=== PATIENT | female | born 1965 | race Caucasian/White ===

== ENCOUNTER 2016-12-17 14:11 | Observation (INO) | payer OTHER ==
[~2016-12-17] VITALS: Ht 160 cm; Wt 54.8 kg
[~2016-12-17 14:11] MED LIST: ALBU1AER9 INH; ALPR1TAB3 PO; ASCO10003 PO; BUPR-79 PO; CYAN100T SL; NRN300 PO; OXYC-164 PO; PRLSR20 PO
[2016-12-17] MEDS ORDERED: NITROGLYCERIN OINT 2% 1GM PACKET EXT STA (14:46)
[2016-12-17] MEDS ORDERED: ACETAMINOPHEN 325 MG TAB PO STA (14:46)
[2016-12-17] MEDS ORDERED: SODIUM CHLORIDE 0.9% 1000ML 500 ML IV STA (14:46)
[2016-12-17 15:02] LABS: MEAN CELL VOLUME 93.8 fL (80-100); MEAN CORPUSCULAR HEMOGLOBIN 32.6 pg (25-34); MEAN CORPUSCULAR HGB CONC 34.8 g/dl (32-36); MEAN PLATELET VOLUME 10.2 fL (7.4-10.4); PLATELET COUNT 235 K/uL (130-400); RED BLOOD COUNT 4.48 M/uL (4.2-5.4); WHITE BLOOD COUNT 10.25 K/uL (4.8-10.8)
--- NOTE | 2016-12-17 15:06 | DIAGNOSTIC IMAGING REPORT ---
CHEST ONE VIEW PORTABLE CLINICAL HISTORY: CHEST PAIN dyspnea COMPARISON STUDY: 02/13/2010 FINDINGS: The bones soft tissues and hemidiaphragms are normal. The cardiomediastinal silhouette is normal. The lungs are clear. The pulmonary vasculature is normal. IMPRESSION: Negative chest. Electronically signed by: Raf Lynch M.D. 12/17/2016 3:05 PM Dictated Date/Time: 12/17/2016 3:04 PM
[2016-12-17 15:13] LABS: PROTHROMBIN TIME (PATIENT) 11.1 SECONDS (9.0-12.0)
[2016-12-17 15:18] LABS: ALT/SGPT 18 U/L (12-78); BLOOD UREA NITROGEN 25 mg/dl (7-18); BUN/CREATININE RATIO 19.5 (10-20); CALCIUM 9.1 mg/dl (8.5-10.1); CARBON DIOXIDE 20 mmol/L (21-32); CHLORIDE 109 mmol/L (98-107); GLUCOSE 99 mg/dl (70-99); POTASSIUM 3.5 mmol/L (3.5-5.1); SODIUM 142 mmol/L (136-145)
[2016-12-17 15:23] LABS: ALB/GLOB RATIO 1.1 (0.9-2); ALKALINE PHOSPHATASE 70 U/L (45-117); AST/SGOT 11 U/L (15-37)
[2016-12-17] MEDS ORDERED: ATOR10TA88 PO (15:24)
--- NOTE | 2016-12-17 15:32 | EMERGENCY ROOM VISIT NOTE ---
History Report prepared by Gay: Jose Mak Under the Supervision of: Dr. Jeremy Cleary M.D. First contact with patient: 14:37 Chief Complaint: CHEST PAIN Stated Complaint: CHEST PAIN, NUMB HANDS/FINGERS,LIPS,FEET Nursing Triage Summary: Pt reports CP and SOB x weeks along with N/T in bilateral hands and lips since this AM. Went to PCP this AM, seen by nurse, told to go to ER. History of Present Illness The patient is a 51 year old female who presents to the Emergency Room with complaints of intermittent chest pain beginning several weeks prior to arrival. She currently rates her discomfort as a 9/10 in severity. The patient associates intermittent shortness of breath, intermittent nausea, intermittent diaphoresis, intermittent dizziness, and numbness and tingling in hands and lips with today's symptoms. The patient states the shortness of breath has been intermittent for weeks. She notes she did not sleep well last night, and experienced dizziness, diaphoresis, and tingling in her hands. The patient states this morning at 0900, she experienced chest pain while walking her dog, worsening tingling in her hands and began to experience tingling in her lips. She notes she went to her doctor's office this morning for an appointment, and the nurse referred the patient to the ED. The patient states her symptoms worsen with exertion. The patient state she had an abnormal stress test in August 2016, but she did not follow up, because she moved from [place] to [place]. She also complains of constant right sided abdominal pain beginning several weeks prior to arrival. The patient describes the pain as a dull sharp pain. She notes she has a history of her bile duct becoming clogged. The patient notes a family history of heart problems and a personal history of hypertension, hyperlipidemia, and questionable diabetes. She states she does not take her cholesterol medication regularly. The patient denies a fever, cough , vomiting, and diarrhea. Source of History: patient Onset: several weeks ERP IMPLEMENTATION CONSULTANT Position: chest Symptom Intensity: 9/10 Timing: intermittent Associated Symptoms: + SOB, + abdominal pain (right sided), + chest pain, + diaphoresis, + nausea, No cough, No diarrhea, No fevers, No vomiting Note: Associated symptoms: intermittent dizziness, numbness and tingling in hands and lips Review of Systems See HPI for pertinent positives & negatives. A total of 10 systems reviewed and were otherwise negative. Past Medical & Surgical Medical Problems: (1) Asthma (2) Chest pain (3) Degenerative disc disease (4) Low back pain (5) Melanoma of foot (6) Osteoarthritis (7) Pericarditis (8) Sciatica Surgical Problems: (1) History of tubal ligation Family History Cancer Diabetes mellitus Heart disease Hypertension Kidney disease Lung disease Seizures Social History Smoking Status: Current Every Day Smoker Alcohol Use: none, other Drug Use: none Occupation Status: unemployed Current/Historical Medications Scheduled Albuterol (Proair Hfa), 2 PUFFS INH QID PRN Atorvastatin (Lipitor), 1 TAB PO QPM Bupropion (Wellbutrin Sr), 300 MG PO QAM Gabapentin (Gabapentin), 300 MG PO BID Oxycodone Hcl (Oxycodone Hcl), 10 MG PO QID Scheduled PRN Alprazolam (Xanax), 1 MG PO BID PRN for Anxiety Omeprazole (Prilosec), 20 MG PO DAILY PRN for ACID REFLUX Allergies Coded Allergies: Aspirin (Verified Allergy, Unknown, pt has ulcers, 09/25/16) Ibuprofen (Verified Allergy, Unknown, pt has ulcers, 09/25/16) Propoxyphene (Verified Allergy, Unknown, 09/25/16) Acetaminophen (Verified Adverse Reaction, Mild, upsets restless leg syndrome, 12/17/16) Physical Exam Vital Signs Date Time Temp Pulse Resp B/P Pulse Ox O2 Delivery O2 Flow Rate FiO2 12/17/16 19:30 81 20 105/66 96 12/17/16 17:46 84 20 107/68 91 Room Air 12/17/16 16:37 72 18 129/78 95 Room Air 12/17/16 15:29 75 12/17/16 14:54 96 Room Air 12/17/16 14:45 84 16 121/97 96 Room Air 12/17/16 14:45 95 Room Air 12/17/16 14:20 36.8 118 20 119/69 96 Room Air Physical Exam GENERAL: Patient is in no acute distress. HEENT: No acute trauma, normocephalic atraumatic, mucous membranes moist, no nasal congestion, no scleral icterus. NECK: No stridor, no adenopathy, no meningismus, trachea is midline. LUNGS: Diminished breath sounds. No wheezing or rhonchi. Breath sounds equal. HEART: Without murmurs gallops or rubs, regular rate and rhythm. ABDOMEN: Soft, nontender, bowel sounds positive, no hernias, no peritonitis. EXTREMITIES: No cyanosis or edema, full range of motion of all the joints without pain or difficulty, no signs for acute trauma. NEUROLOGIC: Oriented x 3, no acute motor or sensory deficits, no focal weakness. SKIN: No rash, no jaundice, no diaphoresis. Medical Decision & Procedures ER Provider Diagnostic Interpretation: X-ray results as stated below per interpretation by me and the radiologist: CHEST ONE VIEW PORTABLE CLINICAL HISTORY: CHEST PAIN dyspnea COMPARISON STUDY: 02/13/2010 FINDINGS: The bones soft tissues and hemidiaphragms are normal. The cardiomediastinal silhouette is normal. The lungs are clear. The pulmonary vasculature is normal. IMPRESSION: Negative chest. Electronically signed by: Raf Lynch M.D. 12/17/2016 3:05 PM Laboratory Results 12/17/16 14:45 12/17/16 14:45 Test 12/17/16 14:45 12/17/16 17:13 Red Blood Count 4.48 M/uL (4.2-5.4) Mean Corpuscular Volume 93.8 fL (80-100) Mean Corpuscular Hemoglobin 32.6 pg (25-34) Mean Corpuscular Hemoglobin Concent 34.8 g/dl (32-36) RDW Standard Deviation 46.2 fL (36.4-46.3) RDW Coefficient of Variation 13.4 % (11.5-14.5) Mean Platelet Volume 10.2 fL (7.4-10.4) Prothrombin Time 11.1 SECONDS (9.0-12.0) Prothromb Time International Ratio 1.0 (0.9-1.1) Activated Partial Thromboplast Time 26.4 SECONDS (21.0-31.0) Partial Thromboplastin Ratio 1.0 Anion Gap 13.0 mmol/L (3-11) Est Creatinine Clear Calc Drug Dose 41.4 ml/min Estimated GFR () 54.2 Estimated GFR (Non- 46.8 BUN/Creatinine Ratio 19.5 (10-20) Calcium Level 9.1 mg/dl (8.5-10.1) Total Bilirubin 0.4 mg/dl (0.2-1) Aspartate Amino Transf (AST/SGOT) 11 U/L (15-37) Alanine Aminotransferase (ALT/SGPT) 18 U/L (12-78) Alkaline Phosphatase 70 U/L (45-117) Total Creatine Kinase 115 U/L (26-192) Creatine Kinase MB 1.1 ng/ml (0.5-3.6) Creatine Kinase MB Ratio 1.0 (0-3.0) Troponin I < 0.015 ng/ml (0-0.045) Total Protein 7.9 gm/dl (6.4-8.2) Albumin 4.1 gm/dl (3.4-5.0) Globulin 3.8 gm/dl (2.5-4.0) Albumin/Globulin Ratio 1.1 (0.9-2) Lipase 131 U/L (73-393) Laboratory results reviewed by me. Medications Administered Medications (Trade) Dose Ordered Sig/Favio Route Start Time Stop Time Status Last Admin Dose Admin Sodium Chloride (Nss 1000ml) 500 ml @ 999 mls/hr Q31M STAT IV 12/17/16 14:46 12/17/16 15:16 DC 12/17/16 15:24 999 MLS/HR Nitroglycerin (Nitroglycerin 2% Oint) 1 inch NOW STAT EXT 12/17/16 14:46 12/17/16 14:49 DC 12/17/16 15:22 1 INCH Acetaminophen (Tylenol Tab) 650 mg NOW STAT PO 12/17/16 14:46 12/17/16 14:49 DC 12/17/16 14:46 650 MG Oxycodone HCl (Roxicodone Immediate Rel Tab) 10 mg QID PO 12/17/16 17:00 01/16/17 16:59 12/17/16 19:29 10 MG ECG Indication: chest pain Rate (beats per minute): 88 Rhythm: normal sinus Findings: ST depression (Inferior and Lateral), no ectopy Comparison ECG Date: 07/30/2010 Change: ST depressions in the inferior and lateral leads are new. ED Course 1444: The patient was evaluated in room B12B. A complete history and physical exam was performed. 1446: Ordered Tylenol Tab 650 mg PO, Nitroglycerin 1 inch EXT, Sodium Chloride 500 ml @ 999 mls/hr IV. 1534: I spoke to CULLEN Last (Hospitalist) about the patient's case, and he will follow the patient for further evaluation. 1537: Reevaluated and updated the patient at this time. Dr. Gambino is in seeing the patient. Medical Decision The differential diagnoses include but are not limited to: angina, AZ, cardiac ischemia, PE, aortic dissection, pneumonia, anemia. There is no leukocytosis or concerning anemia. No significant electrolyte abnormality, kidney failure or hepatitis. There is no pancreatitis. There is no coagulopathy. Chest x-ray shows no mediastinal widening, pneumonia or pneumothorax. EKG shows a normal sinus rhythm, there are some subtle ST depressions in the inferior and lateral leads. No evidence for acute AZ. Her cardiac enzyme testing times one is not consistent with acute cardiac injury. The patient was given nitro paste, IV saline. She was given oral Tylenol. No aspirin was given as she claims an allergy. The patient presents with chest discomfort, shortness of breath. She has multiple cardiac risk factors and reports a recent abnormal stress test. She has an abnormal EKG. Admission/observation is warranted. I spoke with her and case management. The on-call hospitalist was consulted. Consults Time Called: 153 Consulting Physician: CULLEN Last (Hospitalist) Returned Call: 1534 I spoke to CULLEN Last (Hospitalist) about the patient's case, and he will follow the patient for further evaluation. Impression Primary Impression: Precordial chest pain Additional Impression: Acute electrocardiogram changes Scribe Attestation The scribe's documentation has been prepared under my direction and personally reviewed by me in its entirety. I confirm that the note above accurately reflects all work, treatment, procedures, and medical decision making performed by me. Departure Information Dispostion Being Evaluated By Hospitalist (CULLEN Last (Hospitalist) ) Referrals Cory Porras M.D. (PCP) Problem Qualifiers
[2016-12-17] MEDS ORDERED: POLYETHYLENE (MIRALAX) 17 GM PACK PO PRN (16:45)
[2016-12-17] MEDS ORDERED: ALUMINUM/MAGNESIUM/SIMETH (MAALOX MAX) 30 ML UDC PO PRN (16:45)
[2016-12-17] MEDS ORDERED: ALPRAZOLAM 0.5 MG TAB PO PRN (16:45)
[2016-12-17] MEDS ORDERED: ONDANSETRON INJ 2 MG/ML 2 ML VIAL IV PRN (16:45)
[2016-12-17] MEDS ORDERED: MAGNESIUM HYDROXIDE SUSP 30 ML UDC PO PRN (16:45)
[2016-12-17] MEDS ORDERED: ALBUTEROL HFA 8 GM INHALER INH PRN (16:45)
[2016-12-17] MEDS ORDERED: NITROGLYCERIN 0.4 MG SL PER TAB CHARGE SL PRN (16:45)
[2016-12-17] MEDS ORDERED: IV FLUIDS COMPLETED PRN (17:15)
--- NOTE | 2016-12-17 18:05 | DIAGNOSTIC IMAGING REPORT ---
ABDOMINAL ULTRASOUND, RIGHT UPPER QUADRANT HISTORY: Right upper quadrant abdominal pain. COMPARISON: Right upper quadrant ultrasound April 19, [address] of the abdomen July 28, 2010. FINDINGS: Liver morphology is normal. No hepatic lesions are identified. Pancreas is sonographically normal. No gallstones are identified within the gallbladder. Gallbladder wall thickness is at the upper limits of normal. Borderline dilatation of the common bile duct is noted. There is no right hydronephrosis. IMPRESSION: 1. No gallstones. 2. Borderline dilatation of the common bile duct. This is likely within normal limits but could be correlated with liver function tests. Electronically signed by: Clif Triana M.D. 12/17/2016 6:03 PM Dictated Date/Time: 12/17/2016 6:01 PM
--- NOTE | 2016-12-17 18:42 | History and Physical ---
History & Physical Date & Time of Service: Dec 17, 2016 at 18:39 Chief Complaint: Chest Pain, Numb Hands/Fingers,Lips,Feet Primary Care Physician: Cory Porras M.D. History of Present Illness Source: patient, family Ms. Alvarez is a 51 y/o female with PMHx of PUD, Asthma, Pericarditis, Low Back Pain if L Leg Radiculopathy, and Chronic Cervicalgia who presents to the ED c/o intermittent CP, SOB, nausea, diaphoresis, dizziness, and numbness and tingling of hands and lips x weeks. She also complains of intermittent RUQ pain with some radiation to the RLQ that has seemed to become more constant. She states the chest pain starts in the epigastric region and has a sharp sensation that radiates up the sternum and into the neck and jaw. She rates this discomfort as a 9/10 when it occurs. Aggravated with exertion but cannot recall alleviated factors. Cannot say if pain is exacerbated with eating. She reports that she did have an abnormal stress test in August 2016 in [place] but other than that cannot give any more details. She did not follow-up with that due to moving here to [place] after that. She does report poor sleep over the course of a few days and notes numbness and tingling of her hands and lips. She states that these symptoms seemed to have worsened this AM. She has chronic cervicalgia and has failed nerve ablation in the past. Does have She also complains of this ongoing RUQ pain that seems unconnected to the chest pain per patient. She says she has had peptic ulcers in the past and had a scope to confirm but this was many years ago. She does take Omeprazole daily and TUMS intermittently when needed. She does note BRBPR intermittently but denies melena. Patient also reports that she has been recently seen at her PCP that revealed elevated LFTs and had a hepatitis panel performed. She was told she is hepatitis B positive. Review of records reveals only a reactive Hep B Core Total Ab test. She believes this was due to infidelity of an ex- that prompted testing. She also reports having a "clogged bile duct" in the past. She is an every day smoker but denies ETOH or IVDU. She denies fever/chills, vomiting, dysuria, diarrhea. Past Medical/Surgical History Medical Problems: (1) Degenerative disc disease Status: Chronic (2) Low back pain Status: Chronic (3) Pericarditis Status: Resolved (4) Sciatica Status: Chronic Family History Cancer Diabetes mellitus Heart disease Hypertension Kidney disease Lung disease Seizures Social History Smoking Status: Current Every Day Smoker Smokeless Tobacco Use: No Alcohol Use: none Drug Use: none Housing status: lives with family Occupational Status: unemployed Immunizations History of Influenza Vaccine: No History of Tetanus Vaccine?: No History of Pneumococcal: Unknown History of Hepatitis B Vaccine: No Multi-Drug Resistant Organisms History of MDRO: No Allergies Coded Allergies: Aspirin (Verified Allergy, Unknown, pt has ulcers, 09/25/16) Ibuprofen (Verified Allergy, Unknown, pt has ulcers, 09/25/16) Propoxyphene (Verified Allergy, Unknown, 09/25/16) Acetaminophen (Verified Adverse Reaction, Mild, upsets restless leg syndrome, 12/17/16) Home Medications Scheduled Albuterol (Proair Hfa), 2 PUFFS INH QID PRN Atorvastatin (Lipitor), 1 TAB PO QPM Bupropion (Wellbutrin Sr), 300 MG PO QAM Gabapentin (Gabapentin), 300 MG PO BID Oxycodone Hcl (Oxycodone Hcl), 10 MG PO QID Scheduled PRN Alprazolam (Xanax), 1 MG PO BID PRN for Anxiety Omeprazole (Prilosec), 20 MG PO DAILY PRN for ACID REFLUX Review of Systems Constitutional: No chills, No fever Eyes: No worsening of vision ENT: No nasal symptoms, No sore throat, No trouble swallowing Respiratory: No cough, No shortness of breath Cardiovascular: + chest pain Abdomen: + GI bleeding (BRBPR intermittent), + pain (RUQ extending to RLQ) Musculoskeletal: No calf pain, No swelling Genitourinary - Female: No dysuria Neurologic: + numbness/tingling (chronic lumbar pain with LLE radiculopathy), + weakness (LLE (chronic)) Hematologic / Lymphatic: No abnormal bleeding/bruising, No clotting problems Integumentary: No rash Physical Exam Vital Signs Date Time Temp Pulse Resp B/P Pulse Ox O2 Delivery O2 Flow Rate FiO2 12/17/16 17:46 84 20 107/68 91 Room Air 12/17/16 16:37 72 18 129/78 95 Room Air 12/17/16 15:29 75 12/17/16 14:54 96 Room Air 12/17/16 14:45 84 16 121/97 96 Room Air 12/17/16 14:45 95 Room Air 12/17/16 14:20 36.8 118 20 119/69 96 Room Air General Appearance: WD/WN, no apparent distress, + thin Head: normocephalic, atraumatic Eyes: PERRL, sclerae normal ENT: hearing grossly normal Neck: supple, thyroid normal, no JVD, trachea midline Respiratory/Chest: lungs clear, normal breath sounds, no respiratory distress, no accessory muscle use Cardiovascular: regular rate, rhythm, no gallop, no murmur Abdomen/GI: normal bowel sounds, soft, + tenderness (RUQ; Bravo's sign negative) Back: normal inspection, no CVA tenderness Extremities/Musculoskelatal: no calf tenderness, no pedal edema Neurologic/Psych: alert, oriented x 3 Skin: normal color, warm/dry Diagnostics Laboratory Results Results Past 24 Hours Test 12/17/16 14:45 12/17/16 17:13 Range/Units White Blood Count 10.25 4.8-10.8 K/uL Red Blood Count 4.48 4.2-5.4 M/uL Hemoglobin 14.6 12.0-16.0 g/dL Hematocrit 42.0 37-47 % Mean Corpuscular Volume 93.8 80-100 fL Mean Corpuscular Hemoglobin 32.6 25-34 pg Mean Corpuscular Hemoglobin Concent 34.8 32-36 g/dl RDW Standard Deviation 46.2 36.4-46.3 fL RDW Coefficient of Variation 13.4 11.5-14.5 % Platelet Count 235 130-400 K/uL Mean Platelet Volume 10.2 7.4-10.4 fL Prothrombin Time 11.1 9.0-12.0 SECONDS Prothromb Time International Ratio 1.0 0.9-1.1 Activated Partial Thromboplast Time 26.4 21.0-31.0 SECONDS Partial Thromboplastin Ratio 1.0 Sodium Level 142 136-145 mmol/L Potassium Level 3.5 3.5-5.1 mmol/L Chloride Level 109 98-107 mmol/L Carbon Dioxide Level 20 21-32 mmol/L Anion Gap 13.0 3-11 mmol/L Blood Urea Nitrogen 25 7-18 mg/dl Creatinine 1.30 0.60-1.20 mg/dl Est Creatinine Clear Calc Drug Dose 41.4 ml/min Estimated GFR () 54.2 Estimated GFR (Non- 46.8 BUN/Creatinine Ratio 19.5 10-20 Random Glucose 99 70-99 mg/dl Calcium Level 9.1 8.5-10.1 mg/dl Total Bilirubin 0.4 0.2-1 mg/dl Aspartate Amino Transf (AST/SGOT) 11 15-37 U/L Alanine Aminotransferase (ALT/SGPT) 18 12-78 U/L Alkaline Phosphatase 70 45-117 U/L Total Creatine Kinase 115 26-192 U/L Creatine Kinase MB 1.1 0.5-3.6 ng/ml Creatine Kinase MB Ratio 1.0 0-3.0 Troponin I < 0.015 0-0.045 ng/ml Total Protein 7.9 6.4-8.2 gm/dl Albumin 4.1 3.4-5.0 gm/dl Globulin 3.8 2.5-4.0 gm/dl Albumin/Globulin Ratio 1.1 0.9-2 Lipase 131 73-393 U/L Diagnostic Radiology CHEST ONE VIEW PORTABLE CLINICAL HISTORY: CHEST PAIN dyspnea COMPARISON STUDY: 02/13/2010 FINDINGS: The bones soft tissues and hemidiaphragms are normal. The cardiomediastinal silhouette is normal. The lungs are clear. The pulmonary vasculature is normal. IMPRESSION: Negative chest. ABDOMINAL ULTRASOUND, RIGHT UPPER QUADRANT HISTORY: Right upper quadrant abdominal pain. COMPARISON: Right upper quadrant ultrasound April 19, [address] of the abdomen July 28, 2010. FINDINGS: Liver morphology is normal. No hepatic lesions are identified. Pancreas is sonographically normal. No gallstones are identified within the gallbladder. Gallbladder wall thickness is at the upper limits of normal. Borderline dilatation of the common bile duct is noted. There is no right hydronephrosis. IMPRESSION: 1. No gallstones. 2. Borderline dilatation of the common bile duct. This is likely within normal limits but could be correlated with liver function tests. EKG Normal sinus rhythm Right atrial enlargement Nonspecific ST abnormality Abnormal ECG When compared with ECG of 30-JUL-2010 07:21, Nonspecific T wave abnormality no longer evident in Anterior leads Confirmed by QUINTON LANGSTON ([id number]) on 12/17/2016 4:31:48 PM Impression Assessment and Plan Ms. Alvarez is a 51 y/o female with PMHx of PUD, Asthma, Pericarditis, Low Back Pain if L Leg Radiculopathy, and Chronic Cervicalgia who presents to the ED c/o intermittent CP, SOB, nausea, diaphoresis, dizziness, and numbness and tingling of hands and lips x weeks. Patient has presented with numerous chief complaints that have been occurring for a long duration of time. She will be admitted for CP R/O with significant risk factors and EKG findings with mild ST depressions noted in inferolateral leads. She does have PCP follow-up and discussed with patient these ongoing chronic conditions will be best managed by her PCP and getting appropriate referrals. She would benefit from a possible GI referral. Chest Pain: R/O Cardiac Cause vs GI Component - EKG with NSR with mild non-specific ST depressions in II, III, aVF and less significant in V5-V6 - Serial cardiac enzymes - Stress Test - Nitro 0.4 mg SL PRN RUQ Abdominal Pain: Duodenal Ulcer vs Gallbladder Disease vs Liver Disease - RUQ U/S - report reviewed - evidence of dilated bile duct but no abnormality of liver or acute cholecystitis noted - Protonix 40 mg daily as Omeprazole interchange - May need outpatient GI evaluation Acute Kidney Injury: Cr Baseline < 1 - NSS at 100 mL/hr Asthma: - Continue Ventolin PRN Anxiety/Depression: - Wellbutrin 300 mg daily and Xanax 1 mg BID PRN Low Back Pain with LLE Radiculopathy: - Gabapentin 300 mg BID - Oxycodone 10 mg QID DVT Prophylaxis: - TEDs/SCDs Code Status: - FULL RESUSCITATION Disposition: - May benefit from outpatient referral to GI Level of Care Telemetry Resuscitation Status FULL RESUSCITATION VTE Prophylaxis VTE Risk Assessment Done? Y/N: Yes Risk Level: Moderate Given or contraindicated: T.E.D. Stockings, SCD's Assessment and Plan Attending Addendum: I have physically seen and examined this patient, have directed their medical care, have supervised the PA's activity, and agree with the H&P as noted above, with the following changes: NONE. The patient is awake, well-developed and adequately nourished, alert and oriented 3, normocephalic and atraumatic, lying in bed and in no acute distress. HEENT--PERRL, EOMI, mucous membranes and oropharynx moist. Neck--supple, no JVD or bruits, thyroid normal, trachea midline, no adenopathy. Heart--normal S1 and S2, no extra beats, no murmurs, rubs or gallops. Lungs--scattered wheezes bilaterally, no respiratory distress, no accessory muscle use. Abdomen--normal bowel sounds and soft, mildly tender right upper quadrant and epigastric pain, no hernias or masses, no organomegaly. Extremities--no cyanosis, clubbing or edema. There are good distal pulses b/l. Dermatologic--normal skin turgor, normal color, warm and dry, no abnormal lymph nodes, no rash. Neurologic--cranial nerves II through XII grossly intact, motor and sensory examination normal. Psychiatric--normal affect. Assessment and plan: Precordial chest pain with inferolateral changes on EKG and normal initial cardiac enzymes--admit to the telemetry unit for serial cardiac enzymes, cardiac rhythm monitoring and a 2-D echocardiogram with Dopplers. GI--history of hepatitis B core antibody positivity, but negative B surface antigen. We'll order hepatitis B envelope antigen and hepatitis B viral load testing she did have a transient elevation in AST on labs in October, however, labs normal to this time. Reportedly had an ultrasound showing a dilated bile duct. If symptoms persist, options include HIDA scan with gallbladder ejection fraction and/or MRCP. Mild acute renal insufficiency--1.30 point admission, will hydrate with normal saline at 100 ML's per hour, and repeat BMP in the a.m. Anxiety/depression--continue current dosing of Wellbutrin XL 3 mg by mouth daily and Xanax 1 mg by mouth twice a day when necessary. Chronic low back pain with left lower extremity radiculopathy--can continue gabapentin 3 mg by mouth twice a day and oxycodone 10 mg by mouth 4 times a day. COPD/chronic tobacco use disorder --we will have Ventolin available to use when necessary. Discussed with her necessity quit smoking.
[2016-12-17] MEDS: OXYCODONE HCL IR 5 MG TAB (IMMEDIATE RELEASE) PO SCH ×2 (19:29→22:01)
[2016-12-17 20:17] VITALS: BP 105/71; PULSE 84; TEMP 36.6; O2SAT 98; Ht 160 cm; Wt 54.8 kg
[2016-12-17] MEDS: GABAPENTIN 300 MG CAP PO SCH (21:54)
[2016-12-17] MEDS: SODIUM CHLORIDE 0.9% 1000ML 1,000 ML IV SCH (21:55)
[2016-12-17 22:00] LABS: CKMB/CK RATIO 1.3 (0-3.0)
[2016-12-17 23:59] VITALS: O2SAT 98
[2016-12-18 00:21] VITALS: BP 117/77; PULSE 77; TEMP 36.7; O2SAT 94
[2016-12-18] MEDS: SODIUM CHLORIDE 0.9% 1000ML 1,000 ML IV SCH ×2 (02:46→15:27)
[2016-12-18 03:24] LABS: HEMATOCRIT 34.5 % (37-47); MEAN CELL VOLUME 92.7 fL (80-100); MEAN CORPUSCULAR HEMOGLOBIN 31.7 pg (25-34); MEAN CORPUSCULAR HGB CONC 34.2 g/dl (32-36); MEAN PLATELET VOLUME 9.9 fL (7.4-10.4); PLATELET COUNT 182 K/uL (130-400); RED BLOOD COUNT 3.72 M/uL (4.2-5.4); WHITE BLOOD COUNT 9.29 K/uL (4.8-10.8)
[2016-12-18 03:50] VITALS: BP 100/60; PULSE 82; TEMP 36.7; O2SAT 97
[2016-12-18 04:04] LABS: BLOOD UREA NITROGEN 29 mg/dl (7-18); BUN/CREATININE RATIO 30.7 (10-20); CARBON DIOXIDE 25 mmol/L (21-32); CHLORIDE 110 mmol/L (98-107); CHOLESTEROL 143 mg/dl (0-200); CKMB/CK RATIO 1.8 (0-3.0); CREATININE 0.95 mg/dl (0.60-1.20); GLUCOSE 104 mg/dl (70-99); HDL CHOLESTEROL 48 mg/dl; LDL CHOLESTEROL CALCULATED 69 mg/dl; MAGNESIUM 2.1 mg/dl (1.8-2.4); POTASSIUM 3.7 mmol/L (3.5-5.1); SODIUM 144 mmol/L (136-145); TRIGLYCERIDES 131 mg/dl (0-150); VERY LOW DENSITY LIPOPROT CALC 26 mg/dl
[2016-12-18 06:27] LABS: ESTIMATED AVERAGE GLUCOSE 108 mg/dl; HA1C FLAG Normal (Normal)
[2016-12-18 07:28] VITALS: BP 103/63; PULSE 84; TEMP 36.8; O2SAT 100
[2016-12-18] MEDS: GABAPENTIN 300 MG CAP PO SCH (07:41)
[2016-12-18] MEDS: OXYCODONE HCL IR 5 MG TAB (IMMEDIATE RELEASE) PO SCH ×2 (08:01→12:58)
[2016-12-18] MEDS ORDERED: PANTOprazole SOD 40 MG TAB PO SCH (09:00)
[2016-12-18] MEDS ORDERED: BuPROPion SR 150 MG TABCR PO SCH (09:00)
[2016-12-18] MEDS ORDERED: INFLUENZA ADMINISTRATION CHARGE ONE (09:00)
[2016-12-18] MEDS ORDERED: INFLUENZA VIRUS QUAD VACCINE 0.5 ML SYR IM. ONE (09:00)
[2016-12-18] MEDS ORDERED: DOBUTamine HCL 12.5 MG/ML 20 ML VIAL ONE (11:30)
[2016-12-18] MEDS ORDERED: ATROPINE SULFATE 0.1 MG/ML 5ML SYR ONE (11:30)
[2016-12-18] MEDS ORDERED: METOPROLOL TARTRATE 1 MG/ML VIAL ONE (11:30)
--- NOTE | 2016-12-18 12:04 | Progress Note ---
Subjective Date of Service: Dec 18, 2016. Subjective Pt evaluation today including: conversation w/ patient, physical exam, chart review, lab review, review of studies, review of inpatient medication list just came back from stress test. no chest pain, no sob at this time. she does report ruq abd pain, chronically. no further midsternal chest pain, but does have occasional sharp right-sided pain. she had left fingers tingling during stress test but no periorbital tingling. she reports she has cervical radiofrequency done a few years back in [place] that needs to be re-done and she says is probably contributing to her paresthesias. otherwise, smoking cessation was discussed. Problem List Medical Problems: (1) Acute electrocardiogram changes Status: Acute (2) Chronic back pain Status: Acute (3) Precordial chest pain Status: Acute Review of Systems All Other Systems: Reviewed and Negative Medications Medications (Trade) Dose Ordered Sig/Favio Route Start Time Stop Time Status Last Admin Dose Admin Sodium Chloride (Nss 1000ml) 500 ml @ 999 mls/hr Q31M STAT IV 12/17/16 14:46 12/17/16 15:16 DC 12/17/16 15:24 999 MLS/HR Nitroglycerin (Nitroglycerin 2% Oint) 1 inch NOW STAT EXT 12/17/16 14:46 12/17/16 14:49 DC 12/17/16 15:22 1 INCH Acetaminophen 650 mg 650 mg NOW STAT PO 12/17/16 14:46 12/17/16 14:49 DC 12/17/16 14:46 650 MG Sodium Chloride (Nss 1000ml) 1,000 ml @ 100 mls/hr Q10H IV 12/17/16 16:45 01/16/17 16:44 12/18/16 02:46 100 MLS/HR Alprazolam (Xanax Tab) 1 mg BID PRN PO 12/17/16 16:45 01/16/17 16:44 12/17/16 23:09 1 MG Bupropion HCl (Wellbutrin-Sr Tab) 300 mg QAM PO 12/18/16 09:00 01/17/17 08:59 12/18/16 07:42 300 MG Gabapentin (Neurontin Cap) 300 mg BID PO 12/17/16 21:00 01/16/17 20:59 12/17/16 21:54 300 MG Oxycodone HCl (Roxicodone Immediate Rel Tab) 10 mg QID PO 12/17/16 17:00 01/16/17 16:59 12/18/16 08:01 10 MG Pantoprazole Sodium (Protonix Tab) 40 mg QAM PO 12/18/16 09:00 01/17/17 08:59 12/18/16 07:42 40 MG Objective Vital Signs Date Time Temp Pulse Resp B/P Pulse Ox O2 Delivery O2 Flow Rate FiO2 12/18/16 08:00 Room Air 12/18/16 07:28 36.8 84 18 103/63 100 Room Air 12/18/16 04:00 Room Air 12/18/16 03:50 36.7 82 16 100/60 97 Room Air 12/18/16 00:21 36.7 77 17 117/77 94 Room Air 12/17/16 23:59 98 Room Air 12/17/16 20:17 36.6 84 18 105/71 98 Room Air 12/17/16 19:30 81 20 105/66 96 12/17/16 17:46 84 20 107/68 91 Room Air 12/17/16 16:37 72 18 129/78 95 Room Air 12/17/16 15:29 75 12/17/16 14:54 96 Room Air 12/17/16 14:45 84 16 121/97 96 Room Air 12/17/16 14:45 95 Room Air 12/17/16 14:20 36.8 118 20 119/69 96 Room Air Physical Exam Comments: nad, aox3, coherent and fluent speech eomi, perrl, anicteric s1 s2 rrr, no m/r/g ctab no w/r/r abd soft, nt/nd +BS no organomegaly no LE edema no neuro deficits with intact cn 2-12 Laboratory Results Last 24 Hours Test 12/17/16 14:45 12/17/16 17:13 12/17/16 21:25 12/18/16 03:05 White Blood Count 10.25 K/uL 9.29 K/uL Red Blood Count 4.48 M/uL 3.72 M/uL Hemoglobin 14.6 g/dL 11.8 g/dL Hematocrit 42.0 % 34.5 % Mean Corpuscular Volume 93.8 fL 92.7 fL Mean Corpuscular Hemoglobin 32.6 pg 31.7 pg Mean Corpuscular Hemoglobin Concent 34.8 g/dl 34.2 g/dl RDW Standard Deviation 46.2 fL 46.1 fL RDW Coefficient of Variation 13.4 % 13.6 % Platelet Count 235 K/uL 182 K/uL Mean Platelet Volume 10.2 fL 9.9 fL Prothrombin Time 11.1 SECONDS Prothromb Time International Ratio 1.0 Activated Partial Thromboplast Time 26.4 SECONDS Partial Thromboplastin Ratio 1.0 Sodium Level 142 mmol/L 144 mmol/L Potassium Level 3.5 mmol/L 3.7 mmol/L Chloride Level 109 mmol/L 110 mmol/L Carbon Dioxide Level 20 mmol/L 25 mmol/L Anion Gap 13.0 mmol/L 9.0 mmol/L Blood Urea Nitrogen 25 mg/dl 29 mg/dl Creatinine 1.30 mg/dl 0.95 mg/dl Est Creatinine Clear Calc Drug Dose 41.4 ml/min 56.6 ml/min Estimated GFR () 54.2 79.3 Estimated GFR (Non- 46.8 68.4 BUN/Creatinine Ratio 19.5 30.7 Random Glucose 99 mg/dl 104 mg/dl Calcium Level 9.1 mg/dl 8.0 mg/dl Total Bilirubin 0.4 mg/dl Aspartate Amino Transf (AST/SGOT) 11 U/L Alanine Aminotransferase (ALT/SGPT) 18 U/L Alkaline Phosphatase 70 U/L Total Creatine Kinase 115 U/L 100 U/L 84 U/L Creatine Kinase MB 1.1 ng/ml 1.3 ng/ml 1.5 ng/ml Creatine Kinase MB Ratio 1.0 1.3 1.8 Troponin I < 0.015 ng/ml < 0.015 ng/ml < 0.015 ng/ml Total Protein 7.9 gm/dl Albumin 4.1 gm/dl Globulin 3.8 gm/dl Albumin/Globulin Ratio 1.1 Lipase 131 U/L Erythrocyte Sedimentation Rate 7 mm/hr Estimated Average Glucose 108 mg/dl Hemoglobin A1c 5.4 % Magnesium Level 2.1 mg/dl Triglycerides Level 131 mg/dl Cholesterol Level 143 mg/dl HDL Cholesterol 48 mg/dl LDL Cholesterol, Calculated 69 mg/dl VLDL Cholesterol, Calculated 26 mg/dl Cholesterol/HDL Ratio 3.0 Assessment and Plan 1. chest pain - atypical - stress test still pending - if negative, will discharge with follow-up to PCP 2. RUQ pain, chronic - RUQ US unremarkable - unclear etiology 3. LE radiculopathy, cervical radiculopathy - cont gabapentin
--- NOTE | 2016-12-18 12:45 | Discharge Instructions ---
Discharge Instructions Admission Reason for Admission: Chest Pain Discharge Discharge Diagnosis / Problem: chest pain, ruq pain Discharge Goals Goal(s): Decrease discomfort Activity Recommendations Activity Limitations: resume your previous activity . Current Hospital Diet Patient's current hospital diet: AHA Diet (Heart Healthy) Discharge Diet Recommended Diet: Regular Diet Pending Studies Studies pending at discharge: no Laboratory Results Hemoglobin A1c Test 12/18/16 03:05 Range/Units Estimated Average Glucose 108 mg/dl Hemoglobin A1c 5.4 4.5-5.6 % Lipid Panel Test 12/18/16 03:05 Range/Units Triglycerides Level 131 0-150 mg/dl Cholesterol Level 143 0-200 mg/dl HDL Cholesterol 48 mg/dl Cholesterol/HDL Ratio 3.0 LDL Cholesterol, Calculated 69 mg/dl Medical Emergencies . Who to Call and When: Medical Emergencies: If at any time you feel your situation is an emergency, please call 911 immediately. . Non-Emergent Contact Non-Emergency issues call your: Primary Care Provider . . "Provider Documentation" section prepared by Mine Hernández. VTE Core Measure Inpt VTE Proph given/why not?: T.E.D. Stockings, SCD's, Treatment not indicated
[2016-12-18 15:18] VITALS: BP 119/83; PULSE 66; TEMP 36.7; O2SAT 99
--- NOTE | 2016-12-18 16:00 | DOBUTAMINE ECHO ---
*NOTICE TO RECEIVING CONSTITUTION PARTY AGENCY This information is strictly Confidential and protected under [place] law. [place] law prohibits you from making any further disclosure of this information unless further disclosure is expressly permitted by the written consent of the person to whom it pertains or is authorized by law. A general authorization for the release of medical or other information is not sufficient for this purpose. Hospital accepts no responsibility if the information is made available to any other person, INCLUDING THE PATIENT. Interpretation Summary * Name: TOO DELEON Study Date: 12/18/2016 10:43 AM BP: 105/74 mmHg * Patient Location: [facility] HR: 68 * : 1965 (M/d/yyyy) Gender: Female Height: 63 in * Age: 51 yrs Ethnicity: [place] Weight: 120 lb * Ordering Physician: Therese Velásquez * Referring Physician: VEENA * Performed By: Richa Harrington RDCS * * Reason For Study: CHEST PAIN * BSA: 1.6 m2 * History: CHEST PAIN * Resting echocardiogram with normal biventricular systolic function, normal chamber dimensions, and no significant valvular abnormalities. * STRESS STUDY: Normal pharmacologic stress echocardiogram. No echocardiographic or ECG evidence of myocardial ischemia having achieved heart rate adequate for diagnostic purposes. Procedure Details * DOBUTAMINE ECHO, CPT#40501 Left Ventricle * The left ventricle is normal in size. * There is normal left ventricular wall thickness. * Ejection Fraction = 60-65%. * Resting wall motion: Normal. Stress wall motion: Appropriate increase in Left ventricular systolic function and decrease in cavity size. No stress induced segmental wall motion abnormalities. * The left ventricular ejection fraction increases normally with stress. The left ventricular end-systolic cavity size reduces post-stress (normal response). The left ventricular wall motion with stress is normal. * No regional wall motion abnormalities noted. Right Ventricle * The right ventricle is normal in size and function. Atria * The left atrial size is normal. * Right atrial size is normal. Mitral Valve * The mitral valve is normal. * There is no mitral valve stenosis. * There is no mitral regurgitation noted. Tricuspid Valve * The tricuspid valve is normal. * There is no tricuspid stenosis. * There is trace tricuspid regurgitation. * Right ventricular systolic pressure is normal. Aortic Valve * The aortic valve is trileaflet. * The aortic valve opens well. * Aortic stenosis is absent. * No aortic regurgitation is present. Pulmonic Valve * The pulmonary valve is not well seen, but the Doppler examination is normal without significant regurgitation or stenosis. * There is no pulmonic valvular regurgitation. Great Vessels * The aortic root is normal size. Pericardium * There is no pericardial effusion. Stress Parameters * Normal baseline electrocardiogram. * The stress ECG response was normal * Rest heart rate was '68' BPM. * Rest blood pressure was '105/74' * Maximum heart rate achieved was 146 bpm. * Maximum heart rate was 87 % of maximum age-predicted heart rate. * Maximum blood pressure was '180/103' * Maximum Dobutamine infusion rate was '40' mcg/kg/min. * A total of .5 mg of intravenous Atropine was used to supplement Dobutamine for heart rate response. * Dobutamine infusion was terminated due to achieving target heart rate * A total of 5 mg of IV Metoprolol was administered to reverse Dobutamine-induced tachycardia. MMode 2D Measurements and Calculations IVSd 0.64 cm IVSs 1.2 cm LVIDd 4.7 cm LVIDs 3.2 cm LVPWd 0.87 cm LVPWs 1.5 cm IVS/LVPW 0.74 FS 31.2 % EDV(Teich) 102.4 ml ESV(Teich) 42.1 ml EF(Teich) 58.9 % EDV(cubed) 103.8 ml ESV(cubed) 33.9 ml EF(cubed) 67.4 % % IVS thick 80.0 % % LVPW thick 66.8 % LV mass(C)d 113.6 grams LV mass(C)dI 73.0 grams/m\S\2 LV mass(C)s 138.2 grams LV mass(C)sI 88.8 grams/m\S\2 SV(Teich) 60.3 ml SI(Teich) 38.7 ml/m\S\2 SV(cubed) 69.9 ml SI(cubed) 44.9 ml/m\S\2 Ao root diam 2.7 cm Ao root area 5.9 cm\S\2 LA dimension 2.8 cm LA/Ao 1.0 LVAd ap4 23.5 cm\S\2 LVLd ap4 7.0 cm EDV(MOD-sp4) 66.7 ml EDV(sp4-el) 67.0 ml LVAs ap4 13.0 cm\S\2 LVLs ap4 5.7 cm ESV(MOD-sp4) 26.3 ml ESV(sp4-el) 25.0 ml EF(MOD-sp4) 60.5 % EF(sp4-el) 62.7 % SV(MOD-sp4) 40.4 ml SI(MOD-sp4) 25.9 ml/m\S\2 SV(sp4-el) 42.0 ml SI(sp4-el) 27.0 ml/m\S\2 Doppler Measurements and Calculations MV E max ignacio 68.9 cm/sec MV A max ignacio 58.2 cm/sec MV E/A 1.2 MV dec time 0.23 sec Ao V2 max 129.0 cm/sec Ao max PG 6.7 mmHg Ao max PG (full) 3.3 mmHg LV V1 max PG 3.4 mmHg LV V1 max 91.7 cm/sec TR max ignacio 203.8 cm/sec
--- NOTE | 2016-12-18 18:23 | Discharge Summary ---
Discharge Summary Admission Date: Dec 17, 2016 at 16:50 Discharge Date: Dec 18, 2016 Discharge Disposition: Home (left AMA) Principal Diagnosis: atypical chest pain Immunizations: Have You Had Influenza Vaccine: No History of Tetanus Vaccine?: No History of Pneumococcal: Unknown History of Hepatitis B Vaccine: No Procedures: Interpretation Summary * Name: TOO DELEON Study Date: 12/18/2016 10:43 AM BP: 105/74 mmHg * Patient Location: [facility] HR: 68 * : 1965 (M/d/yyyy) Gender: Female Height: 63 in * Age: 51 yrs Ethnicity: [place] Weight: 120 lb * Ordering Physician: Therese Velásquez * Referring Physician: VEENA * Performed By: Richa Harrington RDCS * * Reason For Study: CHEST PAIN * BSA: 1.6 m2 * History: CHEST PAIN * Resting echocardiogram with normal biventricular systolic function, normal chamber dimensions, and no significant valvular abnormalities. * STRESS STUDY: Normal pharmacologic stress echocardiogram. No echocardiographic or ECG evidence of myocardial ischemia having achieved heart rate adequate for diagnostic purposes. Procedure Details * DOBUTAMINE ECHO, CPT#54792 Left Ventricle * The left ventricle is normal in size. * There is normal left ventricular wall thickness. * Ejection Fraction = 60-65%. * Resting wall motion: Normal. Stress wall motion: Appropriate increase in Left ventricular systolic function and decrease in cavity size. No stress induced segmental wall motion abnormalities. * The left ventricular ejection fraction increases normally with stress. The left ventricular end-systolic cavity size reduces post-stress (normal response). The left ventricular wall motion with stress is normal. * No regional wall motion abnormalities noted. Right Ventricle * The right ventricle is normal in size and function. Atria * The left atrial size is normal. * Right atrial size is normal. Mitral Valve * The mitral valve is normal. * There is no mitral valve stenosis. * There is no mitral regurgitation noted. Tricuspid Valve * The tricuspid valve is normal. * There is no tricuspid stenosis. * There is trace tricuspid regurgitation. * Right ventricular systolic pressure is normal. Aortic Valve * The aortic valve is trileaflet. * The aortic valve opens well. * Aortic stenosis is absent. * No aortic regurgitation is present. Pulmonic Valve * The pulmonary valve is not well seen, but the Doppler examination is normal without significant regurgitation or stenosis. * There is no pulmonic valvular regurgitation. Great Vessels * The aortic root is normal size. Pericardium * There is no pericardial effusion. Stress Parameters * Normal baseline electrocardiogram. * The stress ECG response was normal * Rest heart rate was '68' BPM. * Rest blood pressure was '105/74' * Maximum heart rate achieved was 146 bpm. * Maximum heart rate was 87 % of maximum age-predicted heart rate. * Maximum blood pressure was '180/103' * Maximum Dobutamine infusion rate was '40' mcg/kg/min. * A total of .5 mg of intravenous Atropine was used to supplement Dobutamine for heart rate response. * Dobutamine infusion was terminated due to achieving target heart rate * A total of 5 mg of IV Metoprolol was administered to reverse Dobutamine- induced tachycardia. MMode 2D Measurements and Calculations IVSd 0.64 cm IVSs 1.2 cm LVIDd 4.7 cm LVIDs 3.2 cm LVPWd 0.87 cm LVPWs 1.5 cm IVS/LVPW 0.74 FS 31.2 % EDV(Teich) 102.4 ml ESV(Teich) 42.1 ml EF(Teich) 58.9 % EDV(cubed) 103.8 ml ESV(cubed) 33.9 ml EF(cubed) 67.4 % % IVS thick 80.0 % % LVPW thick 66.8 % LV mass(C)d 113.6 grams LV mass(C)dI 73.0 grams/m\\S\\2 LV mass(C)s 138.2 grams LV mass(C)sI 88.8 grams/m\\S\\2 SV(Teich) 60.3 ml SI(Teich) 38.7 ml/m\\S\\2 SV(cubed) 69.9 ml SI(cubed) 44.9 ml/m\\S\\2 Ao root diam 2.7 cm Ao root area 5.9 cm\\S\\2 LA dimension 2.8 cm LA/Ao 1.0 LVAd ap4 23.5 cm\\S\\2 LVLd ap4 7.0 cm EDV(MOD-sp4) 66.7 ml EDV(sp4-el) 67.0 ml LVAs ap4 13.0 cm\\S\\2 LVLs ap4 5.7 cm ESV(MOD-sp4) 26.3 ml ESV(sp4-el) 25.0 ml EF(MOD-sp4) 60.5 % EF(sp4-el) 62.7 % SV(MOD-sp4) 40.4 ml SI(MOD-sp4) 25.9 ml/m\\S\\2 SV(sp4-el) 42.0 ml SI(sp4-el) 27.0 ml/m\\S\\2 Doppler Measurements and Calculations MV E max ignacio 68.9 cm/sec MV A max ignacio 58.2 cm/sec MV E/A 1.2 MV dec time 0.23 sec Ao V2 max 129.0 cm/sec Ao max PG 6.7 mmHg Ao max PG (full) 3.3 mmHg LV V1 max PG 3.4 mmHg LV V1 max 91.7 cm/sec TR max ignacio 203.8 cm/sec Hospital Course Ms. Deleon is a 51 y/o female with PMHx of PUD, Asthma, Pericarditis, Low Back Pain if L Leg Radiculopathy, and Chronic Cervicalgia who presents to the ED c/o intermittent CP, SOB, nausea, diaphoresis, dizziness, and numbness and tingling of hands and lips x weeks. She also complains of intermittent RUQ pain with some radiation to the RLQ that has seemed to become more constant. She states the chest pain starts in the epigastric region and has a sharp sensation that radiates up the sternum and into the neck and jaw. She rates this discomfort as a 9/10 when it occurs. Aggravated with exertion but cannot recall alleviated factors. Cannot say if pain is exacerbated with eating. She reports that she did have an abnormal stress test in August 2016 in [place] but other than that cannot give any more details. She did not follow-up with that due to moving here to [place] after that. She does report poor sleep over the course of a few days and notes numbness and tingling of her hands and lips. She states that these symptoms seemed to have worsened this AM. She has chronic cervicalgia and has failed nerve ablation in the past. Does have She also complains of this ongoing RUQ pain that seems unconnected to the chest pain per patient. She says she has had peptic ulcers in the past and had a scope to confirm but this was many years ago. She does take Omeprazole daily and TUMS intermittently when needed. She does note BRBPR intermittently but denies melena. Patient also reports that she has been recently seen at her PCP that revealed elevated LFTs and had a hepatitis panel performed. She was told she is hepatitis B positive. Review of records reveals only a reactive Hep B Core Total Ab test. She believes this was due to infidelity of an ex- that prompted testing. She also reports having a "clogged bile duct" in the past. She is an every day smoker but denies ETOH or IVDU. She denies fever/chills, vomiting, dysuria, diarrhea. Cardiac enzymes were negative. She had a stress test as above, non-ischemic. Stress test had not resulted yet when patient left AMA. 1. chest pain - atypical - stress test still pending - if negative, will discharge with follow-up to PCP 2. RUQ pain, chronic - RUQ US unremarkable - unclear etiology 3. LE radiculopathy, cervical radiculopathy - cont gabapentin This includes examination of the patient, discharge planning, medication reconciliation, and communication with other providers. Discharge Instructions Please refer to the electronic Patient Visit Report (Discharge Instructions) for additional information. Additional Copies To Cory Porras M.D.
[2016-12-20 18:40] LABS: HEP B QUANT <20 IU/mL (<20); HEP B QUANT LOG IU/ML <1.30 Log IU/mL (<1.30)
== END 2016-12-18 16:01 | disposition left against medical advice (07) ==
LOC: ENRESERVTM → ENRESERVDT → C.EDB 14:13 → C.2T 16:50
PROVIDERS: ADMIT Hospitalist; ATTEND Internal Medicine
DX: R07.89 Other chest pain (principal); R10.11 Right upper quadrant pain; N17.9 Acute kidney failure, unspecified; J44.9 Chronic obstructive pulmonary disease, unspecified; M54.5 Low back pain; M54.12 Radiculopathy, cervical region; F17.200 Nicotine dependence, unspecified, uncomplicated; F32.9 Major depressive disorder, single episode, unspecified; Z83.3 Family history of diabetes mellitus; Z82.49 Family history of ischemic heart disease and other diseases of the circulatory system; Z84.1 Family history of disorders of kidney and ureter

== ENCOUNTER 2017-03-03 17:49 | Emergency (ER) | payer OTHER ==
[~2017-03-03] VITALS: Ht 160 cm; Wt 57.0 kg
[~2017-03-03 17:49] MED LIST changes: -ASCO10003 PO; +ATOR10TA82 PO; -CYAN100T SL
[2017-03-03 18:24] VITALS: TEMP 36.7; Ht 160 cm; Wt 57.0 kg
[2017-03-03] MEDS ORDERED: MoRPHine SULFATE 10 MG/ML CARP/VIAL IM STA (18:49)
[2017-03-03] MEDS ORDERED: DEXAMETHASONE SOD INJ 10 MG/ML VIAL IM ONE (19:00)
[2017-03-03] MEDS ORDERED: ALBU18002 INH (19:00)
[2017-03-03] MEDS ORDERED: ONDANSETRON 4MG OD TAB PO ONE (19:00)
--- NOTE | 2017-03-03 20:18 | DIAGNOSTIC IMAGING REPORT ---
CT SCAN OF THE LUMBAR SPINE WITHOUT IV CONTRAST CLINICAL HISTORY: Chronic low back pain. Left lumbar radiculopathy. COMPARISON STUDY: Radiographs of the lumbar spine dated 09/15/2016. Abdominal CT dated 07/28/2010. TECHNIQUE: CT scan of the lumbar spine is performed from the lower thoracic spine to the sacrum. Images are reviewed in the axial, sagittal, and coronal planes. IV contrast was not administered for this examination. CT DOSE: 594.45 mGy.cm FINDINGS: The skeletal structures are well mineralized. There is no evidence of fracture or malalignment. Vertebral body height is maintained throughout the lumbar spine. There is minimal anterolisthesis at L4-L5. Alignment is otherwise preserved. No lytic or blastic lesions are seen. The transverse and spinous processes are intact. There is no evidence of spondylolysis. Mild facet arthropathy is seen in the lower lumbar region. There is mild degenerative disc space narrowing at L4-L5. The disc spaces are otherwise maintained. There is no evidence of large disc herniation. A posterior disc bulge at L4-L5 likely contributes to mild acquired compromise of the central canal. This causes bilateral subarticular stenosis, and likely impinges on the exiting bilateral L4 nerve roots. No significant neural foraminal stenosis is suggested throughout the lumbar spine. A small posterior disc bulge is also seen at L3-L4 and L5-S1. The visualized sacrum and bony pelvis appear intact. The paraspinous soft tissues are within normal limits. Atherosclerotic calcification is noted in the abdominal aorta. There is mild central intrahepatic biliary ductal dilatation. This was also seen in 2009. No retroperitoneal lymphadenopathy is seen. IMPRESSION: 1. No acute bony abnormality is seen involving the lumbosacral spine. 2. There is a posterior disc bulge at L4-L5. This likely contributes to acquired compromise of the central canal and impinges on the exiting bilateral L4 nerve roots. Dictated: 03/03/2017 7:33 PM Transcribed: 03/03/2017 8:18 PM [email or web address]_Evin Electronically signed by: Jeremy Varela M.D. 03/03/2017 8:19 PM Dictated Date/Time: 03/03/2017 7:33 PM
[2017-03-03] MEDS ORDERED: HYDROmorphone INJ 1 MG/ML SYR IM STA (20:22)
[2017-03-03] MEDS ORDERED: METH4PAK PO (20:26)
[2017-03-03 21:07] VITALS: BP 130/79; PULSE 68; O2SAT 95
--- NOTE | 2017-03-03 22:48 | EMERGENCY ROOM VISIT NOTE ---
History First contact with patient: 18:29 Chief Complaint: BACK PAIN Stated Complaint: LOW BACK PAIN, SCIATIC NERVE PAIN DOWN TO FOOT History of Present Illness The patient is a 51 year old female who presents to the Emergency Room with complaints of lower back pain radiating down the left leg to the foot. The patient reports that she has had this new discomfort for the past 2 weeks. She reports that her dog tripped her while the patient was walking the dog with a leash. She does not know how long before this happened. The patient reports that she was cooking on [place] when she felt a sharp pain in the left lower back region. The patient does have a history of chronic lower back pain. She is currently under the management of Dr. Porras who has been providing prescription oxycodone 10 mg. The patient is currently awaiting a referral to the [facility] for further pain management. The patient currently denies any bladder or bowel incontinence, saddle anesthesias, left upper extremity weakness or foot drop. She reports that the oxycodone has not helped with the pain, and currently rates her discomfort a 10 out of 10. Review of Systems 10 system review was performed and was negative except for pertinent positives and negatives as indicated in history of present illness Past Medical/Surgical History Medical Problems: (1) Asthma (2) Chest pain (3) Degenerative disc disease (4) Low back pain (5) Melanoma of foot (6) Osteoarthritis (7) Pericarditis (8) Sciatica Surgical Problems: (1) Cervical nerve radiofrequency ablation (2) History of tubal ligation Family History Cancer Diabetes mellitus Heart disease Hypertension Kidney disease Lung disease Seizures Social History Smoking Status: Current Every Day Smoker Alcohol Use: none, other Drug Use: none Marital Status: single Housing Status: lives with family, lives with friends Occupation Status: unemployed Current/Historical Medications Scheduled Atorvastatin (Lipitor), 1 TAB PO QPM Bupropion (Wellbutrin Sr), 300 MG PO QAM Gabapentin (Gabapentin), 300 MG PO HS Methylprednisolone (Medrol Dosepak), 0 PO DAILY Oxycodone Hcl (Oxycodone Hcl), 10 MG PO QID Scheduled PRN Albuterol Sulfate (Proair Respiclick), 2 PUFFS INH QID PRN for Shortness of Breath Alprazolam (Xanax), 1 MG PO BID PRN for Anxiety Omeprazole (Prilosec), 20 MG PO DAILY PRN for ACID REFLUX Allergies Coded Allergies: Aspirin (Verified Allergy, Unknown, pt has ulcers, 03/03/17) Ibuprofen (Verified Allergy, Unknown, pt has ulcers, 03/03/17) Propoxyphene (Verified Allergy, Unknown, 03/03/17) Acetaminophen (Verified Adverse Reaction, Mild, upsets restless leg syndrome, 03/03/17) Physical Exam Vital Signs Date Time Temp Pulse Resp B/P Pulse Ox O2 Delivery O2 Flow Rate FiO2 03/03/17 21:07 68 16 130/79 95 Room Air 03/03/17 19:40 63 16 105/67 98 Room Air 03/03/17 18:24 36.7 68 16 123/77 98 Room Air Physical Exam CONSTITUTIONAL: Healthy and well nourished. Alert and oriented X 3 with positive affect. Patient does not appear in any acute distress during the interview. HEENT: Normocephalic, atraumatic. Pupils equal, round and reactive. NECK: Full active range of motion without discomfort. RESPIRATORY: Clear to auscultation bilaterally with no wheezing, crackles, rhonchi or stridor. CARDIOVASCULAR: Regular rate and rhythm with no murmurs, rubs or gallops. GASTROINTESTINAL: Bowel sounds present in all quadrants. Soft and nontender to palpation. MUSCULOSKELETAL: Examination shows tenderness to palpation through the left lower lumbar paraspinous muscle and SI joints. Negative logroll. Negative sitting straight leg raise. Pedal pulses are intact. No popliteal masses. Ankle plantar/dorsiflexion strength is 5 out of 5 and symmetric bilaterally. INTEGUMENTARY: No rash or other significant dermatologic conditions noted. NEUROLOGIC: No focal neurologic deficits noted. Lower extremity deep tendon reflexes are 2+ and symmetric bilaterally. Medical Decision & Procedures ER Provider Diagnostic Interpretation: Noncontrast CT of the lumbar spine shows the following: CT SCAN OF THE LUMBAR SPINE WITHOUT IV CONTRAST CLINICAL HISTORY: Chronic low back pain. Left lumbar radiculopathy. COMPARISON STUDY: Radiographs of the lumbar spine dated 09/15/2016. Abdominal CT dated 07/28/2010. TECHNIQUE: CT scan of the lumbar spine is performed from the lower thoracic spine to the sacrum. Images are reviewed in the axial, sagittal, and coronal planes. IV contrast was not administered for this examination. CT DOSE: 594.45 mGy.cm FINDINGS: The skeletal structures are well mineralized. There is no evidence of fracture or malalignment. Vertebral body height is maintained throughout the lumbar spine. There is minimal anterolisthesis at L4-L5. Alignment is otherwise preserved. No lytic or blastic lesions are seen. The transverse and spinous processes are intact. There is no evidence of spondylolysis. Mild facet arthropathy is seen in the lower lumbar region. There is mild degenerative disc space narrowing at L4-L5. The disc spaces are otherwise maintained. There is no evidence of large disc herniation. A posterior disc bulge at L4-L5 likely contributes to mild acquired compromise of the central canal. This causes bilateral subarticular stenosis, and likely impinges on the exiting bilateral L4 nerve roots. No significant neural foraminal stenosis is suggested throughout the lumbar spine. A small posterior disc bulge is also seen at L3-L4 and L5-S1. The visualized sacrum and bony pelvis appear intact. The paraspinous soft tissues are within normal limits. Atherosclerotic calcification is noted in the abdominal aorta. There is mild central intrahepatic biliary ductal dilatation. This was also seen in 2010. No retroperitoneal lymphadenopathy is seen. IMPRESSION: 1. No acute bony abnormality is seen involving the lumbosacral spine. 2. There is a posterior disc bulge at L4-L5. This likely contributes to acquired compromise of the central canal and impinges on the exiting bilateral L4 nerve roots. Medications Administered Medications (Trade) Dose Ordered Sig/Favio Route Start Time Stop Time Status Last Admin Dose Admin Morphine Sulfate (MoRPHine SULFATE INJ) 10 mg NOW STAT IM 03/03/17 18:49 03/03/17 18:52 DC 03/03/17 18:56 10 MG Ondansetron HCl (Zofran Odt) 4 mg ONE ONCE PO 03/03/17 19:00 03/03/17 19:01 DC 03/03/17 18:56 4 MG Dexamethasone Sodium Phosphate (Decadron Inj) 10 mg NOW ONCE IM 03/03/17 19:00 03/03/17 19:01 DC 03/03/17 18:55 10 MG Hydromorphone HCl (Dilaudid Inj) 1 mg ONE STAT IM 03/03/17 20:22 03/03/17 20:23 DC 03/03/17 20:59 1 MG ED Course Patient history and physical exam were performed. Nurse's notes were reviewed. Vital signs were reviewed and were normal. Review of the [place] Prescription Drug Monitoring Program shows that the patient does receive monthly prescriptions for oxycodone 10 mg. Her last prescription filled was on 02/13/17. The patient reports that her medication is not helping. Because the patient did have a traumatic fall, I did suggest performing a CT scan of the lumbar spine. The patient was in agreement. The patient was administered morphine 10 mg and Decadron [address] showed no acute findings or evidence of significant stenosis. I did discuss CT results with the patient. She was encouraged to continue follow-up with her PCP and pain management. The patient reports that her PCP will not be back in the office until later this month. She also does not have an appointment with the [facility] until 03/17. The patient was advised that I would not alter her treatment plan because she is on on a pain management with her PCP, and likely has a pain contract. She was encouraged to contact the office to discuss this with another provider. She and requested additional medication before leaving, and was administered Dilaudid 1 mg IM. She was provided a prescription for a Medrol Dosepak. She rated her discomfort a 6 out of 10 at the time of discharge. [facility] Drug Monitoring Program Search Results: patient reviewed within database, see additional documentation Impression Primary Impression: Back pain with left-sided sciatica Departure Information Prescriptions Methylprednisolone (MEDROL DOSEPAK) 4 Mg Noel 0 PO DAILY, #1 PKT Prov: Durga Guillen PA 03/03/17 Referrals Cory Porras M.D. (PCP) Patient Instructions My [facility]
== END 2017-03-03 21:07 | disposition home or self-care (01) ==
LOC: C.EDB 17:50 → C.EDD 21:07
DX: M54.32 Sciatica, left side (principal); J45.909 Unspecified asthma, uncomplicated; M19.90 Unspecified osteoarthritis, unspecified site; Z85.820 Personal history of malignant melanoma of skin; I31.9 Disease of pericardium, unspecified; F17.200 Nicotine dependence, unspecified, uncomplicated; Z98.51 Tubal ligation status; Z79.899 Other long term (current) drug therapy; Z88.6 Allergy status to analgesic agent; Z88.8 Allergy status to other drugs, medicaments and biological substances; Z80.9 Family history of malignant neoplasm, unspecified; Z83.3 Family history of diabetes mellitus; Z82.49 Family history of ischemic heart disease and other diseases of the circulatory system; Z84.1 Family history of disorders of kidney and ureter; Z82.0 Family history of epilepsy and other diseases of the nervous system

== ENCOUNTER 2017-05-03 12:08 | Emergency (ER) | payer OTHER ==
[~2017-05-03] VITALS: Ht 160 cm; Wt 53.1 kg
[~2017-05-03 12:08] MED LIST changes: +ALBU18002 INH; -ALBU1AER9 INH; -ATOR10TA82 PO; +ATOR10TA88 PO
[2017-05-03 12:13] VITALS: Ht 160 cm; Wt 53.1 kg
[2017-05-03] MEDS ORDERED: hydrOXYzine HCL IM SOLN 50 MG/ML 1 ML VIAL IM STA (13:00)
[2017-05-03] MEDS ORDERED: MORP30TA PO (14:06)
--- NOTE | 2017-05-03 15:07 | DIAGNOSTIC IMAGING REPORT ---
L-SPINE MIN 4 VIEWS ROUTINE CLINICAL HISTORY: Back pain. Evaluate for fracture. COMPARISON: Lumbar spine radiographs September 15, [address] March 03, 2017. FINDINGS: Grade I anterolisthesis of L4 and L5 is similar to prior exam, likely related to facet arthrosis. There is no acute fracture within the lumbar spine. Mild leftward curvature of the lumbar spine is unchanged. No suspicious lesion is present. There is mild disc space narrowing at several levels. There is moderate multilevel facet arthrosis. IMPRESSION: 1. No acute lumbar spine fracture. 2. Grade I anterolisthesis of L4 and L5 which is unchanged since exam and likely due to facet arthrosis. 3. Mild multilevel disc space narrowing and moderate multilevel facet arthrosis. Electronically signed by: Clif Triana M.D. 05/03/2017 3:06 PM Dictated Date/Time: 05/03/2017 3:04 PM
[2017-05-03] MEDS ORDERED: HYDR25CA PO (15:30)
[2017-05-03 15:36] VITALS: BP 120/84; PULSE 80; TEMP 36.8; O2SAT 97
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
== END 2017-05-03 15:39 | disposition home or self-care (01) ==
LOC: C.EDB 12:08 → C.EDC 15:39
DX: M54.42 Lumbago with sciatica, left side (principal); R07.9 Chest pain, unspecified; G89.29 Other chronic pain; F41.9 Anxiety disorder, unspecified; M19.90 Unspecified osteoarthritis, unspecified site; M51.36 Other intervertebral disc degeneration, lumbar region; F32.9 Major depressive disorder, single episode, unspecified; J45.909 Unspecified asthma, uncomplicated; Z85.820 Personal history of malignant melanoma of skin; Z98.51 Tubal ligation status; Z80.9 Family history of malignant neoplasm, unspecified; Z83.3 Family history of diabetes mellitus; Z82.49 Family history of ischemic heart disease and other diseases of the circulatory system; Z84.1 Family history of disorders of kidney and ureter; Z82.0 Family history of epilepsy and other diseases of the nervous system; F17.210 Nicotine dependence, cigarettes, uncomplicated; Z79.899 Other long term (current) drug therapy

== ENCOUNTER → 2017-05-21 | Outpatient (CLI) | payer OTHER ==
[~2017-05-21] MED LIST changes: -ATOR10TA88 PO; +HYDR25CA PO; +MORP30TA PO
--- NOTE | 2017-05-21 11:26 | DIAGNOSTIC IMAGING REPORT ---
LUMBAR SPINE W/O CONTRAST CLINICAL HISTORY: 52 years-old Female presenting with CHRONIC PAIN. TECHNIQUE: Multisequence, multiplanar MR imaging of the lumbar spine was performed without use of intravenous contrast. IV contrast: None. COMPARISON: Correlation made to CT from 03/03/2017. FINDINGS: Localizer images: Unremarkable. Normal lumbar lordosis. Vertebral bodies maintain normal height. Mild bony edema along the anterior aspect of the endplates of the L1-2 intervertebral joint. Mild degrees of disc desiccation noted at L1-2, L4-5, and L5-S1. No intervertebral disc height loss. 3 to 4 mm of grade 1 anterolisthesis of L4 on L5, degenerative in etiology. Mild multilevel degenerative changes detailed below. T12-L1: Normal. L1-2: Anterior osteophytosis with mild disc bulge that does not significantly efface the ventral thecal sac. No significant neural foraminal narrowing. L2-3: Normal. L3-4: Mild facet hypertrophy without significant neural foraminal narrowing. No spinal canal stenosis. L4-5: Anterolisthesis in combination with a mild disc bulge, facet hypertrophy, and ligamentum flavum thickening causes crowding of the cauda equina with incomplete effacement of CSF. No convincing evidence of impingement of the cauda equina. Mass effect on the transiting L5 nerve roots may be present. Mild bilateral neural foraminal narrowing. L5-S1: Mild disc bulge without significant spinal canal or neural foraminal narrowing. The spinal cord ends in good position at the inferior endplate of T12. Normal morphology of the cauda equina. Paraspinal soft tissues within normal limits. IMPRESSION: 1. Multilevel degenerative changes worst at L4-5, where anterolisthesis, disc bulge, facet hypertrophy, and ligamentum flavum result in crowding of the cauda equina without impingement. Mild bilateral neural foraminal narrowing at L4-5. Additional degenerative change as above. Electronically signed by: Hunter Ansari M.D. 05/21/2017 11:25 AM Dictated Date/Time: 05/21/2017 11:13 AM
== END | disposition home or self-care (01) ==
LOC: C.MRI 05-14 15:52
PROVIDERS: ATTEND Nurse Practitioner Adult Health
DX: G89.4 Chronic pain syndrome (principal); M51.06 Intervertebral disc disorders with myelopathy, lumbar region; M50.00 Cervical disc disorder with myelopathy, unspecified cervical region; M79.7 Fibromyalgia; C43.9 Malignant melanoma of skin, unspecified; J44.9 Chronic obstructive pulmonary disease, unspecified; M16.0 Bilateral primary osteoarthritis of hip; M54.42 Lumbago with sciatica, left side; M79.605 Pain in left leg; R42 Dizziness and giddiness

== ENCOUNTER 2017-06-01 16:28 | Emergency (ER) | payer OTHER ==
[~2017-06-01] VITALS: Ht 162.6 cm; Wt 54.3 kg
[2017-06-01 16:30] VITALS: TEMP 36.7; Ht 162.6 cm; Wt 54.3 kg
--- NOTE | 2017-06-01 18:53 | DIAGNOSTIC IMAGING REPORT ---
LEFT VENOUS DOPPLER UPR EXT UNI HISTORY: Venous Doppler left arm Left arm edema, erythema and palpable lump in bicep COMPARISON STUDY: None. FINDINGS: The internal jugular vein is patent. There is normal flow within the subclavian vein. There is normal flow and compressibility within the left axillary, basilic, brachial, radial, ulnar, and visualized cephalic veins. The images are mislabeled as right. IMPRESSION: No DVT within the upper extremity. The above report was generated using voice recognition software. It may contain grammatical, syntax or spelling errors. Electronically signed by: Raf Lynch M.D. 06/01/2017 6:52 PM Dictated Date/Time: 06/01/2017 6:50 PM
--- NOTE | 2017-06-01 19:43 | EMERGENCY ROOM VISIT NOTE ---
History First contact with patient: 16:35 Chief Complaint: ARM PAIN Stated Complaint: LEFT UPPER ARM PAIN/LUMP, PAIN INTO HAND History of Present Illness The patient is a 52 year old female who presents to the Emergency Room via private vehicle with complaints of "left upper arm pain/lump, pain into hand". The patient states that yesterday, she was walking her dog, and notes that her left forearm felt strange, on the lateral aspect as if there was a bruise. She states that it was felt as if she was stung by a bee. She notes that this pain has now progressed proximally and distally. She also felt a lump overlying the left anterior bicep. She also felt like there was a weight on her chest last night. She notes minimal shortness of breath. She denies any new shortness of breath. She denies any chest pain at this time. She denies any fevers or chills. Review of Systems A complete 6-point Review of Systems was discussed with the patient, with pertinent positives and negatives listed in the History of Present Illness. All remaining Review of Systems questions can be considered negative unless otherwise specified. Past Medical/Surgical History Medical Problems: (1) Asthma (2) Chest pain (3) Degenerative disc disease (4) Low back pain (5) Melanoma of foot (6) Osteoarthritis (7) Pericarditis (8) Sciatica Surgical Problems: (1) Cervical nerve radiofrequency ablation (2) History of tubal ligation Family History Cancer Diabetes mellitus Heart disease Hypertension Kidney disease Lung disease Seizures Social History Smoking Status: Current Every Day Smoker Alcohol Use: none, other Drug Use: none Marital Status: single Housing Status: lives with family, lives with friends Occupation Status: unemployed Current/Historical Medications Scheduled Bupropion (Wellbutrin Sr), 300 MG PO QAM Gabapentin (Gabapentin), 300 MG PO HS Morphine Sulfate Ir (Morphine Sulfate Ir), 60 MG PO BID Omeprazole (Prilosec), 20 MG PO DAILY Oxycodone Hcl (Oxycodone Hcl), 10 MG PO QID Scheduled PRN Albuterol Sulfate (Proair Respiclick), 2 PUFFS INH QID PRN for Shortness of Breath Physical Exam Vital Signs Date Time Temp Pulse Resp B/P (MAP) Pulse Ox O2 Delivery O2 Flow Rate FiO2 06/01/17 20:06 78 16 112/70 98 06/01/17 17:55 78 16 112/70 98 Room Air 06/01/17 16:30 36.7 83 18 117/74 98 Room Air Physical Exam VITAL SIGNS - Vital signs and nursing notes were reviewed. Afebrile, normotensive, non-tachycardic and is saturating well on room air 98%. GENERAL -52-year-old female appearing her stated age who is in no acute distress. Communicates well with provider and answers questions appropriately. SKIN - Without rashes. Skin overlying left arm reveals a faint erythematous hue , no true rash noted. HEAD - NC/AT. EXTREMITIES - No clubbing or peripheral cyanosis. No pretibial edema present. She is neurovascularly intact left upper extremity. Full range of motion noted. There is slight tenderness to palpation overlying the anterior bicep, overlying a small area that is nodular in nature. +5/5 strength noted in UE/LE bilaterally. Medical Decision & Procedures ER Provider Diagnostic Interpretation: LEFT VENOUS DOPPLER UPR EXT UNI HISTORY: Venous Doppler left arm Left arm edema, erythema and palpable lump in bicep COMPARISON STUDY: None. FINDINGS: The internal jugular vein is patent. There is normal flow within the subclavian vein. There is normal flow and compressibility within the left axillary, basilic, brachial, radial, ulnar, and visualized cephalic veins. The images are mislabeled as right. IMPRESSION: No DVT within the upper extremity. The above report was generated using voice recognition software. It may contain grammatical, syntax or spelling errors. Electronically signed by: Raf Lynch M.D. 06/01/2017 6:52 PM Dictated Date/Time: 06/01/2017 6:50 PM Medical Decision Patient was seen and evaluated as above. After obtaining a thorough history and physical examination, patient was offered a full cardiac workup secondary to her chest pain yesterday. She states that she is concerned that her father is at home, and at this time would just like to pursue with the ultrasound. I believe this is reasonable. Ultrasound was obtained. No DVT. Patient was offered again a full workup, and notes only EKG. EKG was performed, reveals normal sinus rhythm, rate of 71 beats per minute, without ectopy or ischemic change. This time she appears stable for discharge. She respectfully declined more workup. She is to follow-up with her family doctor regarding her visit here today. I suspect she is likely experiencing slight nerve irritation in the right upper arm or potentially a pulled muscle. I do not suspect any emergent process. No evidence of infection. She was educated upon worrisome symptoms which to return, had coarse procedure, and was discharged home in good condition. In evaluation treatment this patient following differential diagnoses were entertained: NM, PE, DVT, SVT, nodule, strained muscle, neuropraxia, among others. Impression Primary Impression: Arm pain, left Departure Information Dispostion Home / Self-Care Condition GOOD Referrals Juanpablo Thompson M.D. (MEDICAL) (PCP) Patient Instructions My [facility] Additional Instructions You were seen in the emergency department for left arm discomfort. Ultrasound reveals no blood clot. EKG is normal. Please follow-up with your family doctor in today's visit. Please return to emergency department with any new/concerning symptoms.
[2017-06-01 20:06] VITALS: BP 112/70; PULSE 78; O2SAT 98
== END 2017-06-01 20:08 | disposition home or self-care (01) ==
LOC: C.EDB 16:30 → C.EDD 20:08
DX: M79.622 Pain in left upper arm (principal); J45.909 Unspecified asthma, uncomplicated; M19.90 Unspecified osteoarthritis, unspecified site; I31.9 Disease of pericardium, unspecified; Z83.3 Family history of diabetes mellitus; Z82.49 Family history of ischemic heart disease and other diseases of the circulatory system; Z82.0 Family history of epilepsy and other diseases of the nervous system; F17.200 Nicotine dependence, unspecified, uncomplicated

== ENCOUNTER 2017-11-30 16:11 | Emergency (ER) | payer OTHER ==
[~2017-11-30] VITALS: Ht 160 cm; Wt 55.0 kg
[~2017-11-30 16:11] MED LIST changes: -ALBU18002 INH; -ALPR1TAB3 PO; -HYDR25CA PO; -PRLSR20 PO
[2017-11-30 16:40] VITALS: BP 119/71; TEMP 36.8; Ht 160 cm; Wt 55.0 kg
[2017-11-30] MEDS ORDERED: PRLSR20 PO (16:47)
--- NOTE | 2017-11-30 17:59 | DIAGNOSTIC IMAGING REPORT ---
LUMBAR SPINE 5 VIEWS HISTORY: Fall. Left low back pain COMPARISON: Lumbar spine 05/03/2017. FINDINGS: There is no fracture. Mild levoscoliosis, unchanged. The sacrum is intact. Mild facet degenerative changes within the lower lumbar spine. Mild disc space are at L4-L5 and T11-T12. Grade I anterolisthesis of L4 and L5, unchanged. Disc spaces are preserved. IMPRESSION: No fractures within the lumbar spine. Mild degenerative changes as described above. Electronically signed by: Daniel Lopez M.D. 11/30/2017 5:58 PM Dictated Date/Time: 11/30/2017 5:56 PM
[2017-11-30] MEDS ORDERED: CYCL10TA6 PO (18:26)
[2017-11-30 18:32] VITALS: PULSE 98; O2SAT 99
[2017-11-30] MEDS ORDERED: ALBU18002 INH (19:00)
--- NOTE | 2017-12-01 00:42 | EMERGENCY ROOM VISIT NOTE ---
History First contact with patient: 16:44 Chief Complaint: BACK PAIN Stated Complaint: LOWER BACK ACROSS,DOWN L LEG PAIN History of Present Illness The patient is a 52 year old female who presents to the Emergency Room with complaints of low back pain with radiation of pain down her left leg that is slowly worsening over the past 7 or 8 days. The patient states that she had a fall outside about a week ago, and has had progressively worsening pain since then. She has a history of fibromyalgia and chronic back pain. She states that she has taken gabapentin and Aleve without relief of symptoms. The patient has not had fever or chills. No difficulty using the bathroom. She rates her discomfort a 10/10. Certain movements exacerbate her discomfort. Review of Systems More than 10 systems were reviewed and otherwise negative with the exception of history of present illness. Past Medical/Surgical History Medical Problems: (1) Asthma (2) Chest pain (3) Degenerative disc disease (4) Low back pain (5) Melanoma of foot (6) Osteoarthritis (7) Pericarditis (8) Sciatica Surgical Problems: (1) Cervical nerve radiofrequency ablation (2) History of tubal ligation Family History Cancer Diabetes mellitus Heart disease Hypertension Kidney disease Lung disease Seizures Social History Smoking Status: Current Every Day Smoker Alcohol Use: none, other Drug Use: none Marital Status: single Housing Status: lives with family, lives with friends Occupation Status: unemployed Current/Historical Medications Scheduled Bupropion (Wellbutrin Sr), 300 MG PO QAM Cyclobenzaprine Hcl (Flexeril), 10 MG PO TID Gabapentin (Gabapentin), 300 MG PO TID Omeprazole (Prilosec), 20 MG PO DAILY Scheduled PRN Albuterol Sulfate (Proair Respiclick), 2 PUFFS INH QID PRN for Shortness of Breath Physical Exam Vital Signs Date Time Temp Pulse Resp B/P (MAP) Pulse Ox O2 Delivery O2 Flow Rate FiO2 11/30/17 18:32 98 16 99 11/30/17 16:40 36.8 88 18 119/71 97 Room Air Physical Exam VITALS: Vitals are noted on the nurse's note and reviewed by myself. Vital signs stable. GENERAL: Well-developed, well-nourished, white female, who is in no acute distress and resting comfortably. Patient is cooperative with the examination. HEAD: Normocephalic atraumatic. NECK: Supple without nuchal rigidity. No lymphadenopathy. No thyromegaly. Cervical spine is nontender. HEART: Regular rate and rhythm without murmurs gallops or rubs. LUNGS: Clear to auscultation bilaterally without wheezes, rales or rhonchi. No retractions or accessory muscle use. ABDOMEN: Positive normal bowel sounds x 4. Soft, nontender, without masses or organomegaly. No guarding or rebound tenderness. MUSCULOSKELETAL: No muscle atrophy, erythema, or edema noted. Full range of motion without joint tenderness in all extremities. Tenderness appreciated through the lumbar spine and bilateral SI joints. Negative straight leg raise bilateral. No saddle paresthesias. Neurovascular status is intact distally. NEURO: Patient was alert and oriented to person place and time. CN II through XII grossly intact. No focal neurological deficits. Deep tendon reflexes 2+ throughout. SKIN: The skin was without rashes, erythema, edema, or bruising. Capillary refill less than 2 seconds. Medical Decision & Procedures ER Provider Diagnostic Interpretation: LUMBAR SPINE 5 VIEWS HISTORY: Fall. Left low back pain COMPARISON: Lumbar spine 05/03/2017. FINDINGS: There is no fracture. Mild levoscoliosis, unchanged. The sacrum is intact. Mild facet degenerative changes within the lower lumbar spine. Mild disc space are at L4-L5 and T11-T12. Grade I anterolisthesis of L4 and L5, unchanged. Disc spaces are preserved. IMPRESSION: No fractures within the lumbar spine. Mild degenerative changes as described above. ED Course Physical exam and history were performed. Nursing notes, EMR, and Medication List were personally reviewed. Patient appears to have low back pain worsening over the past week following a mechanical fall. Patient does not have neurologic deficit on examination. X- rays were obtained and are without acute fracture or subluxation per my and radiology's review. Overall the patient appears well for discharge home. I suspect her symptoms are likely an exacerbation of her chronic back pain. I explained to the patient that we would not be able to provide her narcotic medication for her pain. She became very upset with this and requested multiple different controlled substances for relief. I do not feel this is reasonable, as review of her drug monitoring profile shows that she has had multiple prescriptions over the past few months from several providers. Many of these are not local to this area, and she appears to be traveling some distance for narcotics. Additionally the patient has been evaluated at this facility in the past and referred to pain management and orthospine. She does not follow with these services. I did offer her both prednisone and Flexeril, and she initially refused stating that they exacerbated her restless leg syndrome. At this point I explained that I do not have additional services to offer her. There is a strong element of drug-seeking behavior with this patient interaction. She ultimately requested the Flexeril, as well as her discharge papers. She was very animated with expressing her satisfaction at not receiving narcotics. The patient is to follow with her PCP for further care and management as we are not able to provide her pain control services as she is requesting. The chart was completed utilizing [employer] Speech Voice Recognition Software. Grammatical errors, random word insertions, pronoun errors, and incomplete sentences are an occasional consequence of this system due to software limitations, ambient noise, and hardware issues. Any formal questions or concerns about the content, text, or information contained within the body of this dictation should be directly addressed to the provider for clarification. . Medical Decision Differential diagnosis: Etiologies such as musculoskeletal, disc herniation, fracture, aortic disease, metastatic disease, cord compression, discitis, infection, renal colic, gastrointestinal, acute exacerbation of chronic back pain, sciatica, cauda equina, as well as others were entertained. Impression Primary Impression: Fall Additional Impression: Low back pain Departure Information Dispostion Home / Self-Care Condition GOOD Prescriptions Cyclobenzaprine Hcl (FLEXERIL) 10 Mg Tab 10 MG PO TID for 7 Days, #21 TAB Prov: James Feldman PA-C 11/30/17 Forms HOME CARE DOCUMENTATION FORM, IMPORTANT VISIT INFORMATION Patient Instructions My [facility] Additional Instructions You were seen and evaluated today on an emergency basis only. This is not a substitute for, or an effort to provide, complete comprehensive medical care. It is not possible to recognize and treat all injuries or illnesses in a single emergency department visit. For this reason it is recommended that you followup with your primary care physician in the next 2-3 days for recheck of your condition. Flexeril 1 tablet up to 3 times a day as needed for muscle spasms. No driving, working, or alcohol use with Flexeril. The emergency department is not able to provide narcotics for chronic back pain. These services are best provided by your primary care physician or appliance painter and refinisher. You are welcome to return to the emergency department anytime with new, worsening, or concerning symptoms. Problem Qualifiers
== END 2017-11-30 18:33 | disposition home or self-care (01) ==
LOC: C.EDB 16:12 → C.EDD 18:33
DX: M54.5 Low back pain (principal); W19.XXXA Unspecified fall, initial encounter; J45.909 Unspecified asthma, uncomplicated; Z85.820 Personal history of malignant melanoma of skin; M19.90 Unspecified osteoarthritis, unspecified site; M79.7 Fibromyalgia; F17.200 Nicotine dependence, unspecified, uncomplicated; Z98.51 Tubal ligation status; Z98.890 Other specified postprocedural states; Z83.3 Family history of diabetes mellitus; Z82.49 Family history of ischemic heart disease and other diseases of the circulatory system; Z82.0 Family history of epilepsy and other diseases of the nervous system; Z79.899 Other long term (current) drug therapy

== ENCOUNTER 2019-10-11 10:50 | Inpatient (IN) ==
--- NOTE | 2019-10-08 12:01 | Anesthesiology Consultation ---
Date of Service October 08, 2019 Assessment & Plan Chart Review Chart Review: Acceptable Risk for Surgery and Patient NOT seen in Pre Admission Testing Consults Requested none ASA ASA3 Proposed Anesthesia Anesthesia Type: General History Surgery Operation Date: 10/11/19 12:10 Proposed Procedures p L4-L5 Posterior Lumbar Interbody Fusion - Kevin Palumbo DO Allergies Allergy/AdvReac Type Severity Reaction Status Date / Time aspirin Allergy Unknown PT HAS HX Verified 09/28/19 13:29 OF ULCERS ibuprofen Allergy Unknown PT HAS HX Verified 09/28/19 13:29 ULCERS acetaminophen AdvReac Mild upsets Verified 09/28/19 13:29 restless leg syndrome propoxyphene AdvReac Mild Vomiting Verified 09/28/19 13:29 Medications Home Medications Medication Instructions Recorded Confirmed Last Taken albuterol sulfate [ProAir 2 inh INHALATION QID PRN 05/14/19 09/28/19 05/19/19 RespiClick] fluoxetine 20 mg PO QAM 09/28/19 09/28/19 Unknown gabapentin 600 mg PO TID 09/28/19 09/28/19 Unknown hydroxyzine HCl 25 mg PO TID PRN 09/28/19 09/28/19 Unknown multivitamin 1 tab PO 3XWK 09/28/19 09/28/19 Unknown omeprazole 20 mg PO BID 09/28/19 09/28/19 Unknown oxycodone 5 mg PO TID PRN 09/28/19 09/28/19 Unknown prednisone 10 mg PO UD 09/28/19 09/28/19 Unknown trazodone 50 - 100 mg PO HS 09/28/19 09/28/19 Unknown Past Medical History Medical History Anxiety Asthma LAST USED RESCUE INHALER THIS WEEK Attention deficit disorder (ADD) Chronic obstructive pulmonary disease Degenerative disc disease Fibromyalgia Gastritis Gastroparesis GERD (gastroesophageal reflux disease) History of stomach ulcers Osteoarthritis Peripheral neuropathy Post traumatic stress disorder Restless leg syndrome Sciatica (Chronic) Exercise / Class Metabolic Activity III < 4 Walking/Shop/Light housework Past Family History Family History Sister Lung cancer Brother Lung cancer Past Surgical History Surgical History History of colonoscopy History of esophagogastroduodenoscopy (EGD) History of tonsillectomy History of tooth extraction History of tubal ligation Past Anesthesia History No Hx of Anesthesia Complications and No Family Hx of Anesthesia Complications History of PONV No Hx of PONV and No Hx of Motion Sickness Social History Smoking Status: Current some day smoker
[2019-10-08 14:50] LABS: Basophils # (auto) 0.04 K/uL (0-0.2); Basophils % (auto) 0.4 %; Eosinophils # (auto) 0.21 K/uL (0-0.5); Eosinophils % (auto) 2.1 %; Hematocrit (blood only) 46.4 % (37-47); Hemoglobin 15.2 g/dL (12.0-16.0); Immature Granulocytes # (auto) 0.02 K/uL (0.00-0.02); Immature Granulocytes % (auto) 0.2 %; Lymphocytes # (auto) 2.97 K/uL (1.2-3.4); Lymphocytes % (auto) 29.5 %; Mean Corpuscular Hemoglobin 31.7 pg (25-34); Mean Corpuscular Hgb Conc 32.8 g/dL (32-36); Mean Corpuscular Volume 96.9 fL (80-100); Monocytes # (auto) 0.69 K/uL (0.11-0.59); Monocytes % (auto) 6.8 %; Neutrophils # (auto) 6.15 K/uL (1.4-6.5); Platelet Count 301 K/uL (130-400); RDW Coefficient of Variation 14.3 % (11.5-14.5); Red Blood Count 4.79 M/uL (4.2-5.4); White Blood Count 10.08 K/uL (4.8-10.8)
[2019-10-08 14:59] LABS: Partial Thromboplastin Time 27.9 Seconds (21.0-31.0); Prothrombin Time 10.6 Seconds (9.0-12.0)
[2019-10-08 15:21] LABS: BUN Creatinine Ratio 16.9 (10-20); Blood Urea Nitrogen 15 mg/dl (7-18); Calcium 9.8 mg/dl (8.5-10.1); Carbon Dioxide 28 mmol/L (21-32); Chloride 104 mmol/L (98-107); Est GFR (African American) 81.7; Est GFR (Non-African American) 70.5; Glucose 94 mg/dl (70-99); Potassium 4.3 mmol/L (3.5-5.1); Sodium 136 mmol/L (136-145)
--- NOTE | 2019-10-08 16:46 | History and Physical Report ---
DATE OF ADMISSION: 10/11/2019 Surgery is a PLIF procedure, L4-L5 lumbar spine for a disc herniation and spondylolisthesis. HISTORY OF PRESENT ILLNESS: Carlie is a delightful 54-year-old, miserable with back and lower extremity difficulty, paresthesias and weakness. PAST MEDICAL HISTORY: Anxiety, depression, stomach ulcer, asthma, gastroparesis. PAST SURGICAL HISTORY: Includes an RFA in 2013. ALLERGIES: ASPIRIN. FAMILY HISTORY: Heart disease, diabetes, lung carcinoma, single. No alcohol, tobacco 40-year history, one pack daily. REVIEW OF SYSTEMS: Twelve system review is positive for fatigue and headaches. Ear, nose and throat negative. Denies swelling hands, feet. Positive for wheezing, positive for nausea. Positive for depression, joint pain, stiffness and weakness. MEDICATIONS: Gabapentin, oxycodone, Prozac. OBJECTIVE: GENERAL: She is 5 feet, 3 inches, weight 125. MUSCULOSKELETAL: She has pain with flexion and extension of the spine. VITAL SIGNS: Blood pressure 130/80, pulse 80. HEENT: Pupils react to light and accommodation. Ear, nose and throat clear. LUNGS: Clear to auscultation. No rales, rhonchi, wheezing. CARDIAC: Normal S1, S2, pulse 80 beats per minute. She has pain with flexion, extension of spine. Pain with percussion, pain with heel toe walking. She has adequate motor strength and sensation. Pain with straight leg raising pain. Images reviewed in great detail. PLAN: Includes a PLIF procedure, L4-L5 lumbar spine.
[~2019-10-11 10:50] MED LIST changes: +ACETAMINOPHEN 1,000 MG/100 ML VIAL IV SCH; -BUPR-79 PO; +CEFAZOLIN 2000MG 2,000 MG/15 ML SYR IV SCH; -MORP30TA PO; -NRN300 PO; -OXYC-164 PO; +SODIUM CHLORIDE 0.9% 1,000 ML IV SCH
[2019-10-11] MEDS ORDERED: MIDAZOLAM HCL 1 MG/ML 2ML VIAL ONE (10:54)
[2019-10-11] MEDS ORDERED: fentaNYL citrate 100 MCG/2 ML VIAL ONE ×2 (10:54)
[2019-10-11] MEDS ORDERED: LIDOCAINE HCL 2% 2 ML VIAL/AMP(20MG/ML) INFIL ONE (11:20)
[2019-10-11] MEDS ORDERED: ePHEDrine sulfate 50 MG/ML SYR ONE (11:20)
[2019-10-11] MEDS ORDERED: LARYING-O-JET KIT (LTA) ONE (11:20)
[2019-10-11] MEDS ORDERED: NEOSTIGMINE METHYLSULFATE 5 MG/5 ML SYR ONE (11:20)
[2019-10-11] MEDS ORDERED: ROCURONIUM BROMIDE 10 MG/ML 5 ML VIAL ONE ×2 (11:20→17:24)
[2019-10-11] MEDS ORDERED: GLYCOPYRROLATE 0.2 MG/ML VIAL ONE ×2 (11:20→14:11)
[2019-10-11] MEDS ORDERED: PROPOFOL IV EMULSION 10 MG/ML 20 ML VIAL IV ONE (11:20)
[2019-10-11] MEDS ORDERED: ONDANSETRON INJ 2 MG/ML 2 ML VIAL ONE (11:20)
[2019-10-11] MEDS ORDERED: DEXAMETHASONE SOD INJ 4 MG/ML VIAL ONE (11:20)
[2019-10-11] MEDS ORDERED: CEFAZOLIN 2,000 MG/15 ML IV PUSH IV ONE (11:56)
[2019-10-11] MEDS ORDERED: LACTATED RINGER'S 1,000 ML IV SCH (12:00)
[2019-10-11] MEDS ORDERED: EPINEPHrine INJ 1 MG/ML AMP ONE (12:07)
[2019-10-11] MEDS ORDERED: GELATIN SPONGE SZ 100 ONE (12:07)
[2019-10-11] MEDS ORDERED: VANCOMYCIN HCL 1000MG/20ML VIAL ONE (12:07)
[2019-10-11] MEDS ORDERED: THROMBIN FOR SOLN 20000 UNIT KIT ONE (12:07)
[2019-10-11] MEDS ORDERED: BUPIVACAINE 0.5 % 5 MG/1 ML MPF 30ML VIAL ONE (12:07)
[2019-10-11] MEDS ORDERED: BACITRACIN INJ 50,000 UNIT VIAL ONE (12:07)
[2019-10-11] MEDS ORDERED: ePHEDrine sulfate 50 MG/ML AMP IV PRN (12:23)
[2019-10-11] MEDS ORDERED: PROMETHAZINE HCL 6.25 MG in SODIUM CHLORIDE 0.9% 50 ML IV PRN (12:23)
[2019-10-11] MEDS ORDERED: ATROPINE SULFATE 0.1 MG/ML 10ML SYR IV PRN (12:23)
[2019-10-11] MEDS ORDERED: HYDROmorphone INJ 2 MG/ML SYR/VIAL IV PRN (12:23)
[2019-10-11] MEDS ORDERED: ONDANSETRON INJ 2 MG/ML 2 ML VIAL IV PRN ×2 (12:23→16:53)
--- NOTE | 2019-10-11 12:29 | History & Physical Bridge Note ---
Date of Service October 11, 2019 History & Physical Bridge Note I have examined the patient, reviewed the History & Physical and in the interval since the performance of the History & Physical I have noted the following changes of clinical significance: no changes noted
[2019-10-11] MEDS ORDERED: HYDROmorphone INJ 2 MG/ML SYR/VIAL ONE (13:10)
--- NOTE | 2019-10-11 15:24 | Fluoroscopy Report ---
LUMBAR SPINE, INTRAOPERATIVE FLUOROSCOPY HISTORY: L4-5 fusion. FLUOROSCOPY TIME: Routine second. FINDINGS: Intraoperative fluoroscopy was provided for the lumbar spine. 2 fluoroscopic spot images we re obtained. Posterior decompression fusion at L4-L5 with pedicle screws and rods. The hardware appea rs intact. IMPRESSION: Fluoroscopy provided for a L4-5 posterior decompression and fusion. Electronically signed by: Daniel Lopez M.D. 10/11/2019 3:23 PM
--- NOTE | 2019-10-11 15:38 | Post Operative Brief Note ---
PG Immediate Post Op with CF Date of Surgery October 11, 2019 Pre & Post Diagnosis Operation Date: 10/11/19 12:10 Pre-Op Diagnosis: Spondylolisthesis Post-Op Diagnosis: Spondylolisthesis I identified the patient and participated in the time-out.: Yes Procedure Operation Date: 10/11/19 12:10 Actual Procedures p L4-L5 Posterior Lumbar Interbody Fusion(Not Applicable) - Kevin Palumbo DO Surgeon Kevin Palumbo DO Forklift Mechanic Antoine Minor Estimated Blood Loss 300 Findings Consistent with Post-Op Diagnosis Specimens Specimen Description: none per surgeon Drains Pimentel Catheter (16 SINHALA 10ML BALLOON) and Hemovac Drain Complications none 0 Disposition Accompanied Patient To Recovery: Yes Overlapping Procedure I was immediately available: during the entire case.
--- NOTE | 2019-10-11 15:43 | Operative Report ---
PG Post Operative Report Pre & Post Diagnosis Operation Date: 10/11/19 12:10 Pre-Op Diagnosis: Spondylolisthesis Post-Op Diagnosis: Spondylolisthesis I identified the patient and participated in the time-out.: Yes Procedure Operation Date: 10/11/19 12:10 Actual Procedures p L4-L5 Posterior Lumbar Interbody Fusion(Not Applicable) - Kevin Palumbo DO Surgeon Kevin Palumbo DO Bobbin Winder Antoine Minor Estimated Blood Loss 300 Findings Consistent with Post-Op Diagnosis Severe spinal stenosis and severe spondylolisthesis Specimens No specimens Description of Procedure Patient was taken to the operating room a general intubated anesthetic provide the patient. Pimentel catheter administered placed prone on the Tray table scrubbed prepped draped sterile. Formal timeout taken We made a skin incision over the 4-5 interval lumbar spine checking the soft tissue the same plane down or if the facet joints and transverse processes. She had profound facet joint hypertrophy making landmarks for pedicle screw instrumentation extremely difficult. We decompress the neural elements with a complete lamina ectomy at L4-5 foraminotomies partial facetectomy no compressive lesions removed. I was pleased with the decompression aspect of the procedure. We then instrumented the spine. He had significant osteoporosis and weak bone addition to small pedicles and lumbar spine. He safely got pedicle screws in the 4 and 5 the lumbar spine to help stabilize knee for 5 interval. Retracted the dura over on the right-hand side for the posterior lumbar interbody fusion portion of the procedure. There is significant amount of epidural bleedings they were tough to control. We did complete annulotomy complete discectomy and took out the entire disc at L4-5. Then bone graft the displacements of allograft and autograft into the vacated discectomy site locked down the pedicle screw construct after the spon dylolisthesis was reduced. Irrigated thoroughly with approximately 500 cc of fluid. Bone graft out of the transverse processes L4-5 then began our closure over vancomycin powder Hemovac drain with 1 Vicryl suture 2 oh and stable gun on the skin sterile dressings applied. Patient was then returned supine and to PACU improved stable condition without complications Implants used by the PATHSENSORS clued in the posterior lumbar interbody cage device and the pedicle screws. Bone graft used was a combination of morselized autograft addition to demineralized bone matrix. Sponge and needle count correct at the close of procedure There were no complications I attest to the content of the Intraoperative Record and any orders documented therein. Any exceptions are noted below.
[2019-10-11] MEDS: fentaNYL citrate 100 MCG/2 ML VIAL IV PRN ×4 (15:49→16:04)
--- NOTE | 2019-10-11 16:30 | Anesthesiology Progress Note ---
Date of Service October 11, 2019 Anesthesia Post Procedure Vital Signs Vital Signs: Temp Pulse Pulse Resp BP Pulse Ox 10/11/19 16:15 85 23 84/58 L 96 10/11/19 16:05 67 20 102/55 L 95 10/11/19 15:55 78 14 112/67 99 10/11/19 15:45 81 16 87/62 L 100 10/11/19 15:35 36.8 C 81 16 87/62 L 100 10/11/19 11:33 36.8 C 74 18 117/77 97 Pain Intensity Back: Pain Intensity: 10 Transfer of Care Handoff Completed per policy Notes Mental Status: alert / awake / arousable Patient Amnestic to Procedure: Yes Nausea / Vomiting: adequately controlled Pain: adequately controlled Airway Patency, RR, SpO2: stable & adequate BP & HR: stable & adequate Hydration State: stable & adequate Anesthetic Complications: no major complications apparent
[2019-10-11] MEDS ORDERED: ACETAMINOPHEN 1,000 MG/100 ML VIAL IV PRN (16:53)
[2019-10-11] MEDS ORDERED: ONDANSETRON 4 MG OD TAB PO PRN (16:53)
[2019-10-11] MEDS ORDERED: DO NOT ADMINISTER PNEUMOCOCCAL VACCINE PRN (16:53)
[2019-10-11] MEDS ORDERED: SOD PHOSPHATE/SOD BIPHOSPHATE ENEMA 132 ML BTL PR PRN (16:53)
[2019-10-11] MEDS ORDERED: NALOXONE HCL 0.4 MG/1 ML VIAL/CARP IV PRN (16:53)
[2019-10-11] MEDS ORDERED: ALUMINUM/MAGNESIUM SUSP 30 ML UDC PO PRN (16:53)
[2019-10-11] MEDS ORDERED: PROMETHAZINE HCL 12.5 MG in SODIUM CHLORIDE 0.9% 50 ML IV PRN (16:53)
[2019-10-11] MEDS ORDERED: DO NOT ADMINISTER FLU VACCINE PRN (16:53)
[2019-10-11] MEDS ORDERED: MAGNESIUM HYDROXIDE SUSP 30 ML UDC PO PRN (16:53)
[2019-10-11] MEDS ORDERED: bisacodyL 10 MG SUPP PR PRN (16:53)
[2019-10-11] MEDS: HYDROmorphone INJ 0.5 MG/0.5 ML SYR IV PRN ×2 (17:01→20:37)
[2019-10-11] MEDS ORDERED: ALBUTEROL HFA 8 GM INHALER INH PRN (17:04)
[2019-10-11] MEDS: LACTATED RINGER'S 1,000 ML IV SCH (17:11)
[2019-10-11] MEDS: OXYCODONE HCL IR 5 MG TAB (IMMEDIATE RELEASE) PO PRN ×2 (18:24→23:09)
[2019-10-11] MEDS: CEFAZOLIN 2000MG 2,000 MG/15 ML SYR IV SCH (19:22)
[2019-10-11] MEDS: PANTOprazole 40 MG TAB PO SCH (20:34)
[2019-10-11] MEDS: DOCUSATE SODIUM/SENNA 50/8.6MG TAB PO SCH (20:34)
[2019-10-11] MEDS: GABAPENTIN 600 MG TAB PO SCH (20:34)
[2019-10-11] MEDS: NICOTINE 21 MG/24 HR TDSY TD SCH (21:53)
[2019-10-12] MEDS: HYDROmorphone INJ 0.5 MG/0.5 ML SYR IV PRN ×7 (00:01→21:51)
[2019-10-12] MEDS: TRAZODONE HCL 100 MG TAB PO SCH ×2 (01:00→21:43)
[2019-10-12] MEDS: CEFAZOLIN 2000MG 2,000 MG/15 ML SYR IV SCH (03:44)
[2019-10-12 05:21] LABS: Basophils # (auto) 0.01 K/uL (0-0.2); Basophils % (auto) 0.1 %; Eosinophils # (auto) 0.01 K/uL (0-0.5); Eosinophils % (auto) 0.1 %; Hemoglobin 10.7 g/dL (12.0-16.0); Immature Granulocytes # (auto) 0.05 K/uL (0.00-0.02); Immature Granulocytes % (auto) 0.3 %; Lymphocytes # (auto) 2.35 K/uL (1.2-3.4); Lymphocytes % (auto) 15.4 %; Mean Corpuscular Hemoglobin 31.8 pg (25-34); Mean Corpuscular Hgb Conc 33.4 g/dL (32-36); Mean Corpuscular Volume 95.2 fL (80-100); Mean Platelet Volume 9.9 fL (7.4-10.4); Monocytes # (auto) 1.27 K/uL (0.11-0.59); Monocytes % (auto) 8.3 %; Neutrophils # (auto) 11.57 K/uL (1.4-6.5); Neutrophils % (auto) 75.8 %; Platelet Count 192 K/uL (130-400); RDW Coefficient of Variation 14.3 % (11.5-14.5); RDW Standard Deviation 49.9 fL (36.4-46.3); Red Blood Count 3.36 M/uL (4.2-5.4); White Blood Count 15.26 K/uL (4.8-10.8)
[2019-10-12 05:44] LABS: BUN Creatinine Ratio 14.7 (10-20); Creatinine Clr Calc Pharmacy 65.8 ml/min; Est GFR (Non-African American) 83.7; Potassium 3.6 mmol/L (3.5-5.1)
[2019-10-12] MEDS: POLYETHYLENE (MIRALAX) 17 GM PACK PO SCH ×4 (05:51→17:47)
[2019-10-12] MEDS: OXYCODONE HCL IR 5 MG TAB (IMMEDIATE RELEASE) PO PRN ×3 (05:56→16:18)
[2019-10-12] MEDS: LACTATED RINGER'S 1,000 ML IV SCH (06:12)
--- NOTE | 2019-10-12 08:16 | Anesthesiology Progress Note ---
Date of Service October 12, 2019 Anesthesia Post Procedure Vital Signs Vital Signs: Temp Pulse Pulse Pulse Resp BP Pulse Ox 10/12/19 08:14 37.4 C 72 12 96/59 L 95 10/12/19 03:20 36.7 C 72 16 112/70 97 10/11/19 23:07 36.7 C 78 16 123/76 92 10/11/19 19:45 36.9 C 75 18 107/78 96 10/11/19 18:47 36.8 C 72 18 107/66 97 10/11/19 17:46 36.6 C 65 18 115/68 100 10/11/19 16:45 36.9 C 64 20 106/47 L 99 10/11/19 16:35 67 16 97/55 L 97 10/11/19 16:25 36.8 C 76 20 103/66 98 10/11/19 16:15 85 23 84/58 L 96 10/11/19 16:05 67 20 102/55 L 95 10/11/19 15:55 78 14 112/67 99 10/11/19 15:45 81 16 87/62 L 100 10/11/19 15:35 36.8 C 81 16 87/62 L 100 10/11/19 11:33 36.8 C 74 18 117/77 97 Notes Mental Status: alert / awake / arousable and participated in evaluation Patient Amnestic to Procedure: Yes Nausea / Vomiting: adequately controlled Pain: adequately controlled Airway Patency, RR, SpO2: stable & adequate BP & HR: stable & adequate Hydration State: stable & adequate Anesthetic Complications: no major complications apparent and Pt Satisfied with anesthetic care
[2019-10-12] MEDS: PANTOprazole 40 MG TAB PO SCH ×2 (09:02→21:43)
[2019-10-12] MEDS: GABAPENTIN 600 MG TAB PO SCH ×3 (09:02→21:43)
[2019-10-12] MEDS: OXYCODONE HCL 10 MG TABCR (OXYCONTIN) PO SCH ×2 (09:02→21:06)
[2019-10-12] MEDS: FLUOXETINE HCL 20 MG CAP PO SCH (09:02)
[2019-10-12] MEDS ORDERED: KETOROLAC TROMETHAMINE 15 MG/ML VIAL IV PRN (12:25)
[2019-10-12] MEDS: NICOTINE 21 MG/24 HR TDSY TD SCH (21:44)
[2019-10-12] MEDS: DOCUSATE SODIUM/SENNA 50/8.6MG TAB PO SCH (21:44)
[2019-10-13] MEDS: POLYETHYLENE (MIRALAX) 17 GM PACK PO SCH ×5 (00:21→23:50)
[2019-10-13] MEDS: OXYCODONE HCL IR 5 MG TAB (IMMEDIATE RELEASE) PO PRN ×6 (00:26→22:15)
[2019-10-13] MEDS: HYDROmorphone INJ 0.5 MG/0.5 ML SYR IV PRN ×4 (02:00→16:57)
[2019-10-13 05:55] LABS: Basophils # (auto) 0.02 K/uL (0-0.2); Basophils % (auto) 0.2 %; Eosinophils # (auto) 0.08 K/uL (0-0.5); Eosinophils % (auto) 0.6 %; Hematocrit (blood only) 29.7 % (37-47); Immature Granulocytes # (auto) 0.03 K/uL (0.00-0.02); Immature Granulocytes % (auto) 0.2 %; Lymphocytes # (auto) 1.94 K/uL (1.2-3.4); Lymphocytes % (auto) 14.7 %; Mean Corpuscular Hemoglobin 31.5 pg (25-34); Mean Corpuscular Hgb Conc 33.7 g/dL (32-36); Mean Corpuscular Volume 93.7 fL (80-100); Mean Platelet Volume 9.8 fL (7.4-10.4); Monocytes # (auto) 1.55 K/uL (0.11-0.59); Monocytes % (auto) 11.7 %; Neutrophils # (auto) 9.61 K/uL (1.4-6.5); Neutrophils % (auto) 72.6 %; Platelet Count 146 K/uL (130-400); RDW Coefficient of Variation 14.4 % (11.5-14.5); RDW Standard Deviation 49.1 fL (36.4-46.3); Red Blood Count 3.17 M/uL (4.2-5.4); White Blood Count 13.23 K/uL (4.8-10.8)
[2019-10-13 06:18] LABS: BUN Creatinine Ratio 13.2 (10-20); Calcium 7.8 mg/dl (8.5-10.1); Creatinine Clr Calc Pharmacy 59.7 ml/min; Est GFR (African American) 86.3; Est GFR (Non-African American) 74.5; Potassium 3.6 mmol/L (3.5-5.1)
--- NOTE | 2019-10-13 07:16 | Orthopedic Progress Note ---
Date of Service October 13, 2019 Assessment & Plan (1) Spondylolisthesis at L4-L5 level: Assessment: Status post lumbar spine reconstruction reduction of spondylolisthesis 4 5 lumbar spine. Plan: Try to get the patient ambulatory today dressing change to be provided. To get her to subacute rehab tomorrow which would be Present on Admission?: Yes Subjective Patient is alert oriented this morning. No chest pain shortness of breath. If the amount of back pain no extremity pain Review of Systems Review of Systems: No fever sweats chills No neurosensory deficit No confusion Physical Exam Physical Exam: Fire 5 motor strength throughout some pain with percussion lumbar spine. Wound clean dry protected Results & Data Vital Signs (Past 12 Hours) Vital Signs Temp Pulse Resp BP Pulse Ox 10/13/19 00:15 37.4 C 83 16 102/65 93 PG Care Time/CCT Total # of Minutes Spent Total Time Spent with Patient: Total time spent is greater than 50% in coordination of care (as documented) at patient's floor/unit and/or counseling patient:
[2019-10-13] MEDS: PANTOprazole 40 MG TAB PO SCH ×2 (08:40→20:44)
[2019-10-13] MEDS: FLUOXETINE HCL 20 MG CAP PO SCH (08:40)
[2019-10-13] MEDS: OXYCODONE HCL 10 MG TABCR (OXYCONTIN) PO SCH ×2 (08:41→20:44)
[2019-10-13] MEDS: GABAPENTIN 600 MG TAB PO SCH ×3 (08:41→20:44)
[2019-10-13] MEDS: DOCUSATE SODIUM/SENNA 50/8.6MG TAB PO SCH (20:44)
[2019-10-13] MEDS: NICOTINE 21 MG/24 HR TDSY TD SCH (20:44)
[2019-10-13] MEDS: TRAZODONE HCL 100 MG TAB PO SCH (22:29)
[2019-10-14] MEDS: OXYCODONE HCL IR 5 MG TAB (IMMEDIATE RELEASE) PO PRN ×4 (02:23→14:25)
[2019-10-14] MEDS: HYDROmorphone INJ 0.5 MG/0.5 ML SYR IV PRN (04:02)
[2019-10-14] MEDS: POLYETHYLENE (MIRALAX) 17 GM PACK PO SCH ×2 (05:31→11:36)
[2019-10-14 06:03] LABS: Basophils # (auto) 0.03 K/uL (0-0.2); Basophils % (auto) 0.3 %; Eosinophils # (auto) 0.22 K/uL (0-0.5); Hematocrit (blood only) 27.5 % (37-47); Immature Granulocytes # (auto) 0.05 K/uL (0.00-0.02); Immature Granulocytes % (auto) 0.5 %; Lymphocytes # (auto) 1.97 K/uL (1.2-3.4); Mean Corpuscular Hgb Conc 32.7 g/dL (32-36); Mean Corpuscular Volume 94.8 fL (80-100); Mean Platelet Volume 9.9 fL (7.4-10.4); Monocytes # (auto) 1.36 K/uL (0.11-0.59); Monocytes % (auto) 12.4 %; Neutrophils # (auto) 7.32 K/uL (1.4-6.5); Neutrophils % (auto) 66.8 %; Platelet Count 152 K/uL (130-400); RDW Standard Deviation 48.5 fL (36.4-46.3); White Blood Count 10.95 K/uL (4.8-10.8)
[2019-10-14] MEDS ORDERED: COUGH DROP (SUGAR FREE) LOZ 24 LOZ/1 BOX BUCCAL ONE (06:19)
[2019-10-14 06:39] LABS: BUN Creatinine Ratio 19.2 (10-20); Calcium 7.5 mg/dl (8.5-10.1); Creatinine Clr Calc Pharmacy 72.2 ml/min; Est GFR (African American) 108.5; Est GFR (Non-African American) 93.6; Potassium 3.5 mmol/L (3.5-5.1)
[2019-10-14] MEDS: GABAPENTIN 600 MG TAB PO SCH ×2 (09:07→13:13)
[2019-10-14] MEDS: PANTOprazole 40 MG TAB PO SCH (09:08)
[2019-10-14] MEDS: FLUOXETINE HCL 20 MG CAP PO SCH (09:08)
--- NOTE | 2019-10-19 18:35 | Discharge Summary ---
Carlie was admitted to my service after fairly complex lumbar spine surgery and reduction of spondylolisthesis and fusion. She had significant pain postoperatively for at least the first 48 hours. She was pretty stable by hour 72 and discharged home. Essentially uneventful course. She had no fevers, sweats, chills, chest pain, shortness of breath all negative. No neurological deficits. She was discharged home in improved stable condition. I personally discharged her home. Instructions, precautions were provided. Medications provided and a back brace was provided as well. Follow up in approximately 10 days.
== END 2019-10-14 15:27 | disposition home health service (06) | DRG 460 ==
LOC: ASU 10:50 → 3E 15:45